=== PATIENT | male | born 1960 | race African-American/Black ===

== ENCOUNTER 2019-04-06 08:27 | Emergency (ER) | payer BC ==
[~2019-04-06] VITALS: Ht 172.7 cm; Wt 116.6 kg
[~2019-04-06 08:27] MED LIST: VAS1025 PO
[2019-04-06 08:34] VITALS: Ht 172.7 cm; Wt 116.6 kg
[2019-04-06 10:06] LABS: BASOPHIL % 0.3 % (0-2); PLATELET COUNT 271 x10^3mcL (130-400); RED CELL DISTRIBUTION WIDTH 13.8 % (11.5-14.5)
[2019-04-06 10:14] LABS: CALCIUM 8.4 mg/dL (8.5-10.1); CARBON DIOXIDE 24.3 mmol/L (21-32); CHLORIDE SERUM 98 mmol/L (98-107); CREATININE SERUM 0.9 mg/dL (0.7-1.3); GFR1 > 60 mL/min; GLUCOSE SERUM 241 mg/dL (74-106); POTASSIUM SERUM 3.5 mmol/L (3.5-5.1); SODIUM SERUM 136 mmol/L (136-145)
[2019-04-06 10:18] LABS: ALKALINE PHOSPHATASE 112 U/L (46-116); ALT/SGPT 146 U/L (16-63); AST/SGOT 38 U/L (15-37); BILIRUBIN TOTAL 0.88 mg/dL (0.20-1.00); TOTAL PROTEIN, SERUM 7.9 g/dL (6.4-8.2)
[2019-04-06 10:49] LABS: UA SPECIFIC GRAVITY 1.015 (1.005-1.035); microscopic required? YES; urine erythrocyte NEGATIVE (NEGATIVE)
[2019-04-06 12:00] VITALS: BP 145/78
== END 2019-04-06 12:01 | disposition home or self-care (01) ==
LOC: ED 08:27
PROVIDERS: Emergency Medicine
DX: F41.9 Anxiety disorder, unspecified (principal); I10 Essential (primary) hypertension; R11.0 Nausea; Z98.890 Other specified postprocedural states
CPT/HCPCS: 82962; J2060; J2405; Q0092

== ENCOUNTER 2020-08-08 16:56 | Inpatient (IN) | payer BC, SELFPAY ==
[~2020-08-08] VITALS: Ht 172.7 cm; Wt 133.0 kg
--- NOTE | 2020-08-08 16:58 | NUR ---
BIB MEDICS, NO AVAILABLE BEDS, LEFT IN AMBULANCE BAY IN [facility] ON BED DELAY
--- NOTE | 2020-08-08 16:58 | NUR ---
BIB MEDICS, NO BED, LEFT IN [facility] IN [facility]
--- NOTE | 2020-08-08 17:26 | NUR ---
PT APPARENTLY LEFT IN TENT, TRIAGED BY CINDI HERNANDEZ
[2020-08-08 19:46] LABS: BASOPHIL % 0.3 % (0.2-1.5); PLATELET COUNT 235 x10^3mcL (152-348); RED CELL DISTRIBUTION WIDTH 13.8 % (12.1-16.2)
[2020-08-08 19:47] LABS: CALCIUM 8.7 mg/dL (8.5-10.1); CARBON DIOXIDE 24.9 mmol/L (21-32); CHLORIDE SERUM 96 mmol/L (98-107); CREATININE SERUM 1.7 mg/dL (0.7-1.3); GFR1 44 mL/min; GLUCOSE SERUM 185 mg/dL (74-106); POTASSIUM SERUM 3.7 mmol/L (3.5-5.1); SODIUM SERUM 134 mmol/L (136-145)
[2020-08-08 19:52] LABS: ALBUMIN 3.6 g/dL (3.4-5.0); ALKALINE PHOSPHATASE 102 U/L (46-116); ALT/SGPT 131 U/L (16-63); AST/SGOT 85 U/L (15-37); BILIRUBIN TOTAL 0.9 mg/dL (0.20-1.00); C REACTIVE PROTEIN 11.9 mg/dL (<=0.9); LACTIC DEHYDROGENASE (LDH) 489 U/L (100-190); TOTAL PROTEIN, SERUM 8.2 g/dL (6.4-8.2)
[2020-08-08] MEDS ORDERED: ESCITALOPRAM OX20 MG PO (23:52)
[2020-08-08] MEDS ORDERED: ATORVASTATIN CA20 M1 PO (23:52)
[2020-08-08] MEDS ORDERED: LISINOPRIL10 MG PO (23:53)
[2020-08-08] MEDS ORDERED: HYDRALAZINE HCL50 MG PO (23:53)
[2020-08-08] MEDS ORDERED: HYDROCHLOROTHIA25 MG PO (23:54)
[2020-08-08] MEDS ORDERED: METFORMIN500 M1 PO (23:54)
[2020-08-08] MEDS ORDERED: METOPROLOL TART50 MG PO (23:54)
--- NOTE | 2020-08-09 00:18 | NUR ---
PT CAME FROM TENT.
[2020-08-09 01:36] LABS: CHOLESTEROL/HDL RATIO 3.1
--- NOTE | 2020-08-09 05:34 | NUR ---
PLACED IN 15 LITERS NRB
[2020-08-09 06:53] LABS: BASOPHIL % 0.2 % (0.2-1.5); PLATELET COUNT 212 x10^3mcL (152-348)
[2020-08-09 07:03] LABS: CALCIUM 8.4 mg/dL (8.5-10.1); CARBON DIOXIDE 24.3 mmol/L (21-32); CREATININE SERUM 1.9 mg/dL (0.7-1.3); MAGNESIUM 2.6 mg/dL (1.8-2.4); PHOSPHOROUS 4.6 mg/dL (2.5-4.9); POTASSIUM SERUM 4.1 mmol/L (3.5-5.1)
--- NOTE | 2020-08-09 07:18 | NUR ---
REPORT GIVEN TO DELICIA HERNANDEZ
--- NOTE | 2020-08-09 07:38 | NUR ---
PT AAOX4 AND LAYING ON GURNEY S/F. PT ON 15L O2 VIA NRB. SPEAKING IN FULL CLEAR SENTENCES. APPEARS IN NO ACUTE DISTRESS. DENIES SOB/PAIN/DISCOMFORT. DEMONSTRATED UNDERSTANDING OF CALL LIGHT. SERVED BREAKFAST TRAY.
--- NOTE | 2020-08-09 11:00 | NUR ---
PT TOLERATING O2 VIA NRB. STATES "I FEEL FINE I DON'T FEEL SHORT OR BREATH." RESPIRATIONS E/U.
--- NOTE | 2020-08-09 12:59 | NUR ---
PT EATING LUNCH TRAY. STATES HE TRIED TO URINATE IN THE URINAL BUT STATES "THERE WAS NOTHING." PT IS UNSURE IF HE HAS HX OF BPH/PROSTATE. STATES HE WILL TRY AGAIN LATER. URINAL AT BEDSIDE
--- NOTE | 2020-08-09 13:00 | NUR ---
PT EDUCATED ON PLASMA TX. SIGNED CONSENT ON CHART. ALSO STATES HE IS WILL TO BE INTUBATED IF NEED BE.
--- NOTE | 2020-08-09 14:24 | NUR ---
ASSISTED PT TO URINAL. APPROX 450ML VICKY HAZY URINE
[2020-08-09 14:57] LABS: UA SPECIFIC GRAVITY >=1.030 (1.005-1.035); microscopic required? YES; urine erythrocyte NEGATIVE (NEGATIVE)
--- NOTE | 2020-08-09 15:49 | NUR ---
ATTEMPTING TO CALL FOR REPORT FOR PT TRANSFER TO TELE
--- NOTE | 2020-08-09 16:08 | NUR ---
ATTEMPTING TO CALL TELE UNIT FOR ADMIT BUT MULTIPLE TIMES NO ANSWER WHEN DIRECTED TO YAIMA HERNANDEZ
--- NOTE | 2020-08-09 16:31 | NUR ---
REPORT GIVEN TO YAIMA HERNANDEZ
[2020-08-09 17:45] VITALS: BP 122/78
--- NOTE | 2020-08-09 18:00 | NUR ---
LOADING DOSE OF REMDESIVIR INITIATED. OXYMIZER ADDED TO NONREBREATHER DUE PT O2 DOWN TO 88%. PT DENIES PAIN. INFORMED DR. RODRIGUEZ THAT US VENOUS NEEDS TO BE CLARIFIED, THE IDICATION IS NOT ON THE ORDER. DR. RODRIGUEZ STATED SHE WILL CLARIFY THE ORDER. ALL CARE ENDORSED TO ACADEMY DIRECTOR RN.
--- NOTE | 2020-08-09 20:00 | NUR ---
PT RECIEVED AAO REG RESP NO SOB BUT DIMINISHED TO JYOTI LOWER BASES,PT ON 15L NRM AND 8L N/C SAT 88%,ABDO IS SOFT WITH ACTIVE BOWEL SOUNDS,BED IN THE LOW POSITION AND LOCKED,KEPT CLEAN AND DRY TO TOUCH AND WILL CONTINUE TO MONITOR.
[2020-08-09 20:10] VITALS: BP 142/89
--- NOTE | 2020-08-09 20:19 | NUR ---
PNEUMOVAX 25 MCG GIVEN IM TO THE LT UPPER ARM ORDER,WILL CONTINUE TO MONITOR.
--- NOTE | 2020-08-09 20:41 | NUR ---
PT RECIEVED AAO REG RESP DIMINISHED TO JYOTI LOWER BASES HOB,PT ON 15L MRM AND OXYMIZER 8L SAT 91%,ABDO IS SOFT WITH ACTIVE BOWEL SOUNDS,IV INFUSING TO THE LT WRIST WITH THE SITE PATENTAND INTACT,KEPT CLEAN AND DRY TO TOUCH,KEPT CLEAN AND DRY TO TOUCH,CALL LIGHT EASY REACHED AND WILL CONTINUE TO MONITOR.
--- NOTE | 2020-08-09 21:41 | NUR ---
STARTED THE CONVALESCENT PALSMA ORDER AND PATIENT TOLERATING IT WELL,KEPT CLEAN AND DRY TO TOUCH AND WILL CONTINUE TO MONITOR.
[2020-08-10 04:32] VITALS: BP 138/88
--- NOTE | 2020-08-10 05:58 | NUR ---
PT HAD A RESTING NIGHT NO CHNAGE AT THIS TIME,WILL CONTINUE TO MONITOR.
--- NOTE | 2020-08-10 07:30 | NUR ---
RECEIVED PT FROM FIRE PROTECTION INSPECTOR NURSE. TELE #47, SB HR 59. AAOX4, LAYING ON L SIDE. BREATHING EVEN/SHALLOW ON 15 L NRB AND 12 L OXYMIZER. O2 SAT 87%. INCREASED OXYMIZER TO 13L. O2 SAT 93%. PT REPORTS BEING ABLE TO TAKE A DEEPER BREATH THAN YESTERDAY. DENIES PAIN/SOB AT THIS TIME. PT STILL IN NEED OF CONTINUOUS PULSE OX, NONE AVAILABLE IN HOSPITAL AT THIS TIME. IV TO LH PATENT, INFUSING NSAT 70ML/HR. NO FURTHER CONCERNS VOICED AT THIS TIME. BED IN LOWEST POSITION , CALL LIGHT IN REACH.
[2020-08-10 08:49] VITALS: BP 139/71
[2020-08-10 10:18] LABS: CALCIUM 8.4 mg/dL (8.5-10.1); CARBON DIOXIDE 25.2 mmol/L (21-32); CREATININE SERUM 1.4 mg/dL (0.7-1.3); POTASSIUM SERUM 3.5 mmol/L (3.5-5.1)
[2020-08-10 11:05] LABS: ALBUMIN 2.8 g/dL (3.4-5.0); BILIRUBIN DIRECT 0.2 mg/dL (0.0-0.2); BILIRUBIN TOTAL 0.53 mg/dL (0.20-1.00); TOTAL PROTEIN, SERUM 7.1 g/dL (6.4-8.2)
[2020-08-10 12:04] VITALS: BP 105/77
--- NOTE | 2020-08-10 13:30 | NUR ---
CHECKED BS, WAS 270, GAVE 9 U PER SLIDING SCALE. PT TOLERATED WELL. PT ENCOURAGED TO LIE IN PRONE POSITION, PT STATES HE WILL. PT'S O2 SAT 93% WHILE SUPINE, 96% WHILE IN PRONE. PT BREATHING EVEN/SHALLOW ON 15 L NRB+13L OXYMIZER. IN NO ACUTE RESP DISTRESS AT THIS TIME. PT REPORTS NO PAIN/SOB AT THIS TIME. SPOKE WITH SISTER ON PT'S PHONE, UPDATED ON PLAN OF CARE AND PT'S CONDITION. ALL QUESTIONS/CONCERNS ADDRESSED. BED IN LOWEST POSITION, CALL LIGHT IN REACH.
[2020-08-10 15:25] LABS: BASOPHIL % 0.2 % (0.2-1.5); PLATELET COUNT 316 x10^3mcL (152-348); RED CELL DISTRIBUTION WIDTH 13.6 % (12.1-16.2)
[2020-08-10 16:27] VITALS: BP 131/73
--- NOTE | 2020-08-10 17:30 | NUR ---
CHECKED BS, WAS 270. GAVE 9 UNITS INSUILN PER SLIDING SCALE. PT TOELRATED WELL. PT STATED THAT WHEN HE SWITCHED OVER TO SUPINE POSITION, IV TO L HAND GOT PULLED OUT. INSERTED NEW IV TO R HAND 22 G, IV PATENT, CDI, INFUSING NS AT 50 ML/HR. PT AAOX4, BREATHING EVEN/UNLABORED ON 15 L NRB+13LOXYMIZER. O2 SAT 92%. PT DENIES PAIN/SOB. NO FURTHER CONCERNS VOICED. BED IN LOWEST POSITION, CALL LIGHT IN REACH.
--- NOTE | 2020-08-10 19:20 | NUR ---
RECEIVED SHIFT REPORT FROM DAY RN ALVA. PT AWAKE, ALERT/ORIENTED X4. IN NAD. ON 15L NRB/13L OXYMIZER. VSS AT THIS TIME. +PULSES, +BS [id number]. DENIES PAIN, 0/10. RT PIV STIE BENIGN, INFUSING FLUIDS PER ORDERS. PT UPDATED ON POC, DENIES ANY NEEDS/CONCERNS AT THIS TIME. SAFETY CHECKS COMPLETED, CALL MAYER WITHIN REACH. HS CARE ONGOING.
[2020-08-10 22:06] VITALS: BP 128/76
[2020-08-11 06:37] VITALS: BP 118/78
--- NOTE | 2020-08-11 08:00 | NUR ---
RECIEVED PATIENT ALERT AND ORIENTED TIMES FOUR. IV INTACT AND PATIENT HAS BEEN TOLERATING DIET AND FLUIDS WELL. HE HAS USED SHAMIR URINAL AND URINE IS MEDIUM VICKY IN COLOR AND HE DENIES NO PAIN WITH URINATION. VITALS AT THIS TIME AT 97.5, 8, 20, 110/78, 90% ON NON REBREATHER AND THE OXYMIZER ORDERED. PATIENT CONTINUED WITH REMDESIVIR AND HAS RECEIVE DECADRON ORDERED. NOTED ON THE CHEST XRAY EARLY PNEUMONIA AND OR ATELECTASIS. NOTED LABS ARE THE BUN AND CREATININE OF THE PREVIOUS WAS AT 50.0 AND 1.4. PATIENT HAS HAD BLOOD SUGAR THIS AM AND AT 193 AND RECEIVED 3 UNITS OF REGULAR AT THAT TIME. HE DENIES PAIN AND SLEEPING QUIETLY ON AND OFF.
[2020-08-11 09:26] VITALS: BP 152/93
--- NOTE | 2020-08-11 12:04 | NUR ---
PATIENT HAD A RUN OF V TACH AND DENIES ANY CHEST PAIN PALPATATIONS. PATIENT WAS GIVEN SIX UNIT SO REGULAR FOR BLOOD SUGAR OF 244 ON AND OFF SOB NOTED BUT PATIENT DENIES ANY DISTRESS. SEEN BY THE DOCTOR AND ORDERS PENDING AT THIS TIME.
[2020-08-11 12:20] LABS: BASOPHIL % 0.1 % (0.2-1.5); PLATELET COUNT 350 x10^3mcL (152-348); RED CELL DISTRIBUTION WIDTH 13.8 % (12.1-16.2)
[2020-08-11 12:24] VITALS: BP 140/87
[2020-08-11 13:00] LABS: CALCIUM 8.5 mg/dL (8.5-10.1); CARBON DIOXIDE 24.9 mmol/L (21-32); CHLORIDE SERUM 105 mmol/L (98-107); CREATININE SERUM 1.1 mg/dL (0.7-1.3); GFR1 > 60 mL/min; GLUCOSE SERUM 232 mg/dL (74-106); SODIUM SERUM 140 mmol/L (136-145)
[2020-08-11 13:11] LABS: BILIRUBIN DIRECT 0.2 mg/dL (0.0-0.2); BILIRUBIN TOTAL 0.54 mg/dL (0.20-1.00); TOTAL PROTEIN, SERUM 6.6 g/dL (6.4-8.2)
[2020-08-11 13:36] LABS: ALBUMIN 2.7 g/dL (3.4-5.0)
[2020-08-11 17:26] VITALS: BP 140/86
--- NOTE | 2020-08-11 17:44 | NUR ---
GAVE INSULIN COVERAGE OF SIX UNITS AND PATIENT HAS HIS REMDESIVIR RUNNING AT [facility].
--- NOTE | 2020-08-11 19:50 | NUR ---
PATIENT RECEIVED, PATIENT DENIES PAIN AND DISCOMFORT AT THIS TIME. O2 91% ON 15L NRB AND 12L OXYMIZER. NSR HR 61. DENIES CHEST PAIN. BED IN LOWEST POSITION AND CALL LIGHT WITHIN REACH.
[2020-08-11 21:37] VITALS: BP 147/84
[2020-08-12 05:11] VITALS: BP 160/94
--- NOTE | 2020-08-12 07:04 | NUR ---
PATIENT IS RESTING IN BED. DENIES PAIN AT THIS TIME. O2 93% ON 15L NRB. NO SIGN OF DISTRESS. DENIES CHEST PAIN, DENIES SOB AT THIS TIME. BED IN LOWEST POSITION AND CALL LIGHT WITHIN REACH. WILL ENDORSE TO AM NURSE.
[2020-08-12 07:30] LABS: BASOPHIL % 0.3 % (0.2-1.5); PLATELET COUNT 352 x10^3mcL (152-348); RED CELL DISTRIBUTION WIDTH 13.3 % (12.1-16.2)
[2020-08-12 07:49] LABS: CALCIUM 8.2 mg/dL (8.5-10.1); CARBON DIOXIDE 30.4 mmol/L (21-32); CHLORIDE SERUM 105 mmol/L (98-107); CREATININE SERUM 1.1 mg/dL (0.7-1.3); GFR1 > 60 mL/min; GLUCOSE SERUM 158 mg/dL (74-106); SODIUM SERUM 139 mmol/L (136-145)
[2020-08-12 08:42] VITALS: BP 152/92
[2020-08-12 09:09] LABS: BILIRUBIN DIRECT 0.17 mg/dL (0.0-0.2); BILIRUBIN TOTAL 0.49 mg/dL (0.20-1.00)
[2020-08-12 09:11] LABS: ALBUMIN 2.7 g/dL (3.4-5.0); TOTAL PROTEIN, SERUM 5.9 g/dL (6.4-8.2)
--- NOTE | 2020-08-12 11:38 | NUR ---
SEEN BY THE DR AND ADVISED TO PRONE OR LA Y ON THE SIDE MUCH POSSIBLE. CONTINUED ON PRESENT 02 LEVEL. TOLERATED DIET AND STATES HE FEELS BETTER.
--- NOTE | 2020-08-12 11:50 | NUR ---
RECEIVED PATIENT AWAKE AND ABLE TO MAKE NEED KNOWN. CONTINUE ON THE NON REBREATHER AND THE OXYMIZER ORDERED AND DENIES SOB BUT APPEARS LABORED SOMEWHAT. HE ALSO STATES HE FEELS BETTER TODAY. LUNGS ARE DIMINISHED WITH SOME FINE SCATTERED RALES HEARD TO BOTH LUNGS. IV INTACT AND CONTINUED FLUIDS ORDERED. SANTINO LESTERS BEEN URINATING ALOT AND THE URINE IS MEDIUM VICKY IN COLOR AND ABOUT 700CC SO FAR. TOLERATED BREAKFAST AND FLUIDS WELL. PATIENT HAS TAKEN HIS MEDICATIONS AND LAST BLOOD SUGAR RECEIVED 156 WITH 3 UNITS OF REGULAR. PATIENT HAD NO ADVERSE REACTION FORMT HE REMDESIVIR AND HAS HAD THREE DOSES SO FAR. PATIENT AHS NOTED LABS OF PLATLET AT 352, AND THE CA AT 8.2, AND BUN AT 27.0. ENCOURAGE TO LIE ON HIS SIDE OR ABDOMEN PER NELY PILLAIAL.
[2020-08-12 13:17] VITALS: BP 153/86
--- NOTE | 2020-08-12 18:23 | NUR ---
GAVE REMDESIVIR ORDERED AND DENIES ANY ADVERSE REACTION. BLOOD SUGAR AT 256 AND GAVE INSULIN COVERAGE INDICATED. CONTINUED ON THE [facility] REBREATHER AND OXYMIZER ORDERED.
[2020-08-12 18:37] VITALS: BP 144/90
[2020-08-12 22:07] VITALS: BP 132/80
--- NOTE | 2020-08-12 22:38 | NUR ---
IV BECAME DISLODGED AND IV BEEPING. IV CATHETER IS OUT OF VEIN AND CANNULA IS SITTING ON SURFACT OF RIGHT HAND. RESTARTED ON FIRST ATTMEPT INTO LEFT FOREARM ON FIRST ATTEMPT USING ASEPTIC TECNIQUE. IV CATHETER SIZE 22 G
[2020-08-13 05:06] VITALS: BP 153/95
[2020-08-13 07:57] LABS: PLATELET COUNT 367 x10^3mcL (152-348); RED CELL DISTRIBUTION WIDTH 13.2 % (12.1-16.2)
[2020-08-13 08:21] VITALS: BP 136/80
[2020-08-13 08:40] LABS: CALCIUM 8.1 mg/dL (8.5-10.1); CHLORIDE SERUM 104 mmol/L (98-107); CREATININE SERUM 0.9 mg/dL (0.7-1.3); GFR1 > 60 mL/min; GLUCOSE SERUM 127 mg/dL (74-106); POTASSIUM SERUM 3.5 mmol/L (3.5-5.1); SODIUM SERUM 140 mmol/L (136-145)
[2020-08-13 09:27] LABS: BILIRUBIN DIRECT 0.23 mg/dL (0.0-0.2); BILIRUBIN TOTAL 0.7 mg/dL (0.20-1.00); TOTAL PROTEIN, SERUM 6.2 g/dL (6.4-8.2)
[2020-08-13 09:46] LABS: ALBUMIN 2.6 g/dL (3.4-5.0)
[2020-08-13 11:58] VITALS: BP 152/88
[2020-08-13 13:31] LABS: ATYPICAL LYMPH 2 %; BAND NEUTROPHIL 3 % (0-10); MONOCYTE 8 % (0-7); PLATELET MORPHOLOGY PLATELETS NORMAL; SEGMENTED NEUTROPHILS 77 % (37-75); rbc morphology (normal/abnorm) NORMAL (NORMAL)
[2020-08-13 16:20] VITALS: BP 137/82
[2020-08-13 21:18] VITALS: BP 98/58
[2020-08-13 21:37] VITALS: BP 148/87
[2020-08-14 06:18] VITALS: BP 137/90
[2020-08-14 07:46] VITALS: BP 147/87
[2020-08-14 09:30] LABS: RED CELL DISTRIBUTION WIDTH 13.6 % (12.1-16.2)
[2020-08-14 09:39] LABS: CALCIUM 8.6 mg/dL (8.5-10.1); CARBON DIOXIDE 28.8 mmol/L (21-32); CHLORIDE SERUM 98 mmol/L (98-107); CREATININE SERUM 0.9 mg/dL (0.7-1.3); GFR1 > 60 mL/min; GLUCOSE SERUM 133 mg/dL (74-106); POTASSIUM SERUM 3.6 mmol/L (3.5-5.1); SODIUM SERUM 135 mmol/L (136-145)
[2020-08-14 09:48] LABS: PLATELET COUNT 415 x10^3mcL (152-348)
[2020-08-14 12:47] VITALS: BP 123/70
[2020-08-14 16:18] LABS: BAND NEUTROPHIL 3 % (0-10); BASOPHIL 0 % (0-2); MONOCYTE 7 % (0-7); SEGMENTED NEUTROPHILS 75 % (37-75)
[2020-08-14 16:21] LABS: burr cell (echinocyte) 1+; rbc morphology (normal/abnorm) ABNORMAL (NORMAL); tear drop cell (dacryocyte) 1+
[2020-08-14 16:22] LABS: PLATELET MORPHOLOGY PLATELETS NORMAL
[2020-08-14 17:54] VITALS: BP 137/94
--- NOTE | 2020-08-14 18:28 | NUR ---
PATIENT WAS ABLE TO LIE PRONE TODAY. HE SAID IT DID NOT HELP A LOT. HE SAID HE IS HAVING TROUBLE BREATHING THROUGH HIS NOSE AND THAT IT SEEMS STUFFED BUT DOESN'T CLEAR WELL WHEN HE BLOWS HIS NOSE. THIS NURSE SUGGESTED PUTTING THE OXYMIZER TO HIS MOUTH. HE DID SO AND STATED THAT WAS A LOT BETTER. ENCOURAGED PRONING AGAIN WHEN POSSIBLE. BED LOCKED IN LOWEST POSITION. CALL LIGHT IN REACH. DENIES NEEDING ANYTHING AT THIS TIME.
--- NOTE | 2020-08-14 20:10 | NUR ---
RECIEVED PT FROM DAY SHIFT NURSE. A&O X 4. RR EVEN AND UNLABORED. PT ON 15L NRB & 12L OXYMIZER. O2 SAT 94%. NO ADN. BED LOCKED AND LOWERED. CALL LIGHT WITHIN REACH. WILL CONTINUE WITH PLAN OF CARE.
[2020-08-14 22:02] VITALS: BP 130/83
[2020-08-15 06:56] VITALS: BP 126/71
[2020-08-15 07:01] VITALS: BP 148/87
--- NOTE | 2020-08-15 07:40 | NUR ---
PT RESTING IN BED. A&O X4. NO ADN. WILL ENDORSE TO DAY SHIFT NURSE.
[2020-08-15 08:58] VITALS: BP 127/84
[2020-08-15 09:38] LABS: RED CELL DISTRIBUTION WIDTH 13.5 % (12.1-16.2)
[2020-08-15 10:05] LABS: CHLORIDE SERUM 100 mmol/L (98-107); GLUCOSE SERUM 106 mg/dL (74-106); POTASSIUM SERUM 4.4 mmol/L (3.5-5.1); SODIUM SERUM 137 mmol/L (136-145)
[2020-08-15 10:09] LABS: PLATELET COUNT 437 x10^3mcL (152-348)
[2020-08-15 10:36] LABS: GFR1 > 60 mL/min
[2020-08-15 12:28] VITALS: BP 142/85
--- NOTE | 2020-08-15 15:47 | NUR ---
NO SIGN OF DISTRESS. PATIENT HAS BEEN PRONING WELL. DENIES NEEDING ANYTHING. BED LOCKED IN LOWEST POSITION. CALL LIGHT IN REACH. O2 SATS OVER 90%.
[2020-08-15 17:22] VITALS: BP 135/83
[2020-08-15 17:40] LABS: ATYPICAL LYMPH 1 %; BAND NEUTROPHIL 6 % (0-10); BASOPHIL 0 % (0-2); MONOCYTE 5 % (0-7); SEGMENTED NEUTROPHILS 72 % (37-75)
[2020-08-15 17:41] LABS: PLATELET MORPHOLOGY PLATELETS INCREASED; rbc morphology (normal/abnorm) NORMAL (NORMAL)
--- NOTE | 2020-08-15 19:56 | NUR ---
RECIEVED PT FROM DAY SHIFT NURSE. A&O X4. RREVEN AND UNLABORED. PT ON 15L NRB & 12L OXYMIZER. O2 SAT 95%. NO ADN. BED LOCKED AND LOWERED. CALL LIGHT WITHIN REACH. WILL CONTINUE WITH PLAN OF CARE.
[2020-08-15 20:50] VITALS: BP 125/81
[2020-08-16 05:39] VITALS: BP 138/86
--- NOTE | 2020-08-16 07:06 | NUR ---
PT RESTING IN BED. A&O X4. RR EVEN AND UN LABORED. PT ON 15L NRB & 12L OXYMIZER. NO ADN. BED LOCKED AND LOWERED. CALL LIGHT WITHIN REACH. WILL ENDORSE TO DAY SHIFT NURSE.
[2020-08-16 07:57] LABS: BASOPHIL % 0.2 % (0.2-1.5); PLATELET COUNT 396 x10^3mcL (152-348); RED CELL DISTRIBUTION WIDTH 13.7 % (12.1-16.2)
[2020-08-16 08:13] LABS: CALCIUM 8.8 mg/dL (8.5-10.1); CARBON DIOXIDE 28.2 mmol/L (21-32); CHLORIDE SERUM 105 mmol/L (98-107); CREATININE SERUM 0.9 mg/dL (0.7-1.3); GFR1 > 60 mL/min; GLUCOSE SERUM 126 mg/dL (74-106); POTASSIUM SERUM 4.1 mmol/L (3.5-5.1); SODIUM SERUM 140 mmol/L (136-145)
[2020-08-16 09:14] VITALS: BP 156/95
--- NOTE | 2020-08-16 12:06 | NUR ---
AAO TIMES 4. TELE # 47 SR. LUNGS DIMINISHED BILATERALLY. O2 SAT 93% ON 15L NRB MASK, AND 15L OXIMIZER. BS'S ACTIVE TIMES 4. HART WITH GENERALIZED WEAKNESS. IV SITE CDI. COOPERATIVE. PERIPHERAL PULSES PALPABLE. NO C/O PAIN.
--- NOTE | 2020-08-16 14:41 | NUR ---
Initial Nutrition Assessment 250A Manfred Fink C - 59/M Dx: COVID 19 PNA, Hypoxia PMHx: HTN, DM PSHx: none Labs: (08/16) WBC 12H, BUN 27H, POCBG 251H, BILI 0.23H, AST 54H, ALT 166H, ALB 2.6L Meds: Humulin, Decadron, Vit D, Decadron, Lopressor, Colace, Lipitor, Zinc, Mucinex Diet: CCHO PO intake since admission: 90% PO intake x last 6 meals Ht: 172.72cm/ 5'7" Wt: 118.5kg/ 260# BMI: 39.7 Bed scale: unknown IBW: 148#/ 67.3kg %IBW: 175% UBW: unknown Age: 59 Food Allergies: NKFA Skin condition: CDI Sancho: 21 Edema: no edema Last BM: 08/11 Per H&P: 59-year-old male with pmhx of htn and diabetes who comes to the ED for shortness of breath. Patient states that his symptoms started 2 days ago, and he was tested positive last weekend. He lives with his brother who was also tested positive. His sob is minimal at rest; however, it gets exacerbated with movement, especially when climbing stairs. He gets really winded and starts having bad coughs after undergoing physical activity (climbing stairs). He also reports 4-5 episodes of lose diarrhea for [address] Note (08/16): Patient is an obese male with covid positive and currently on 15 l o2 via NRB and nasal cannula. Attempted calling over phone, no answer pt is on non-breather mask. He is has a fair appetite on a CCHO diet eating 90% average x 6 meals. C/O general weakness and some loose stools. His diet is not meeting needs d/t large frame and higher calorie and protein needs. Will rec to add 1 can Glucerna QD to supplement needs and easy to drink. Problem with: N/V/D/C: loose stools, otherwise denies Problems with: Chewing: Swallowing: none/ NRB Current appetite: fair Recent wt change: unknown %wt change: unknown Vitamin/Supplement use: unknown Special diet at home: unknown Physical activity: unknown Nutrition education given (specify specific nutrition education and handout given): no Food-drug interactions? Education given? no Estimated Nutritional Needs Based on [place] (67.3kg) body weight Energy: 2019 - 2356 kcal/day (30-35 kcal/kg) infection/sepsis Protein: 80 - 100 g/day (g/kg) Fluid: 2019 - 2356 mL/day (1 mL/kcal) Nutrition Diagnosis: Increased nutrient needs related to viral infection aeb Intervention 1. Consider modification to CCHO 75gm to meet needs. 2. Recommend adding 1 can Glucerna QD with meals for additional (220kcals/ 10gm protein) Monitor/Evaluate Goal: PO intake at least 75% of estimated needs Monitor: PO intake, Labs, GI function, ONS tolerance F/U in 3-5 days as moderate risk 08/19-
--- NOTE | 2020-08-16 14:41 | NUR ---
1. Consider modification to [facility] 75gm to meet needs. 2. Recommend adding 1 can Glucerna QD with meals for additional (220kcals/ 10gm protein)
[2020-08-16 15:29] VITALS: BP 144/83
--- NOTE | 2020-08-16 19:13 | NUR ---
AAO TIMES 4. TELE # 47 SR. VS'S STABLE. COOPERATIVE. ISOLATION DROPLET FOR COVID 19. NO C/O PAIN. O2 15 LNRB AND 15 L OXIMIZER.
--- NOTE | 2020-08-16 20:00 | NUR ---
PT RESTING IN BED WITH EYES OPEN. A&O X4. PT ON TELE 47 PRESENTING WITH SR. STRONG PULSES, NO EDEMA NOTED. PT ON 15L NRB, 15L OXYMIZER, OXYGEN SATURATION 92%. ACTIVE BOWEL SOUNDS X4. PT VOIDS IN URINAL. PT HAS GENERALIZED WEAKNESS BUT IS AMBULATORY. SKIN INTACT. NO C/O OR SIGNS OF PAIN, DISTRESS, OR DISCOMFORT. IV ON LFA WITH FLUIDS RUNNING PER MD ORDER. BED ON LOWEST LEVEL, CALL LIGHT WITHIN REACH, BED RAILS UP X2. WILL CONTINUE TO MONITOR.
[2020-08-16 21:57] VITALS: BP 133/88
--- NOTE | 2020-08-17 02:53 | NUR ---
PT RESTING IN BED WITH EYES CLOSED. PT COMPLIANT WITH 15L NRB AND 15L OXYMIZER AND TURNING SELF. NO C/O OR SIGNS OF PAIN, DISTRESS, OR DISCOMFORT. BED ON LOWEST LEVEL, CALL LIGHT WITHIN REACH, BED RAILS UP X2. WILL CONTINUE TO MONITOR.
--- NOTE | 2020-08-17 06:40 | NUR ---
PT RESTING IN BED. PT COMPLIANT WITH 15L NRB AND 15L OXYMIZER, OXYGEN SATURATION 95%. NO C/O OR SIGNS OF PAIN, DISTRESS, OR DISCOMFORT. BED ON LOWEST LEVEL, CALL LIGHT WITHIN REACH, BED RAILS UP X2. WILL ENDORSE TO ONCOMING SHIFT.
[2020-08-17 07:02] VITALS: BP 151/88
[2020-08-17 08:38] LABS: PLATELET COUNT 369 x10^3mcL (152-348); RED CELL DISTRIBUTION WIDTH 13.7 % (12.1-16.2)
[2020-08-17 08:45] VITALS: BP 139/79
[2020-08-17 08:51] LABS: CALCIUM 8.8 mg/dL (8.5-10.1); CARBON DIOXIDE 29.4 mmol/L (21-32); CHLORIDE SERUM 102 mmol/L (98-107); CREATININE SERUM 0.9 mg/dL (0.7-1.3); GFR1 > 60 mL/min; GLUCOSE SERUM 129 mg/dL (74-106); POTASSIUM SERUM 3.8 mmol/L (3.5-5.1); SODIUM SERUM 138 mmol/L (136-145)
[2020-08-17 13:58] LABS: MONOCYTE 10 % (0-7); PLATELET MORPHOLOGY PLATELETS NORMAL; SEGMENTED NEUTROPHILS 79 % (37-75)
[2020-08-17 14:19] LABS: rbc morphology (normal/abnorm) NORMAL (NORMAL)
[2020-08-17 15:32] VITALS: BP 117/80
[2020-08-17 21:05] VITALS: BP 132/84
[2020-08-18 05:30] VITALS: BP 131/91
--- NOTE | 2020-08-18 06:44 | NUR ---
RECEIVED PT ON BED - AAOX4, DENIES PAIN/DISCOMFORT AT THIS TIME, NOT IN DISTRESS. ASSESSMENT DONE. ON O2 INHA VIA NRB AT 15 LPM AND OXYMIZER AT 12 LPM SAT 92%. PT AMBULATORY WITHOUT ASSIST, CONTINENT , NO DIFFICULTY VOIDING. SAFETY MEASURES EMPHASIZED, VERBALIZED UNDERSTANDING. NEEDS ATTENDED. ACCUCHECKS DONE, COVERAGE GIVEN PRN. AT 0600 RECEIVED A CALL FROM FAMILY, JASMIN, UPDATED ON PT CONDITION. NO CHANGED NOTED DURING SHIFT. GEN CONDITION GUARDED.
--- NOTE | 2020-08-18 08:05 | NUR ---
RECIEVED REPORT FROM PM NURSE. PT A/OX4, FOLLOWS 2-STEP COMMANDS. TELE 47, SR-SB. S1 S2 NOTED. PULSES EQUAL, PALPABLE, NO EDEMA NOTED. COLOR APPROPRIATE FOR THNICITY. CRACKLES TO JYOTI UPPER LOBES, DIM JYOTI LOWER LOBES. 15LNRB, 12L OXYMIZER. O2 SAT 95%. BOWEL SOUNDS ACTIVE X4, LAST BM 08/15/20. CONTINENT, VOIDS USING URINAL. WEAKNESS TO BLE, SKIN INTACT. NO C/O PAIN. LFA 20G IV RUNNING NS @50ML/HR. WILL CONTINUE TO MONITOR. BED IN LOWEST POSITION, RAILS UP, CALL LIGHT WITHIN REACH
[2020-08-18 08:08] LABS: PLATELET COUNT 340 x10^3mcL (152-348); RED CELL DISTRIBUTION WIDTH 13.7 % (12.1-16.2)
[2020-08-18 08:31] LABS: CALCIUM 8.9 mg/dL (8.5-10.1); CARBON DIOXIDE 29.8 mmol/L (21-32); CHLORIDE SERUM 99 mmol/L (98-107); CREATININE SERUM 0.9 mg/dL (0.7-1.3); GFR1 > 60 mL/min; GLUCOSE SERUM 97 mg/dL (74-106); POTASSIUM SERUM 4.3 mmol/L (3.5-5.1); SODIUM SERUM 136 mmol/L (136-145)
[2020-08-18 09:01] VITALS: BP 124/78
[2020-08-18 12:01] VITALS: BP 132/68
--- NOTE | 2020-08-18 13:35 | NUR ---
EDUCATED PT ABOUT PURPOSE OF PICC LINE PLACEMENT. PT VERBALIZED UNDERSTANDING, SIGNED CONSENT. EDUCATED PT ABOUT IMPORTANCE OF PRONING AND REPOSITIONING TOLERATED. PT RETURN DEMONSTRATED WILL CONTINUE TO MONITOR. BED IN LOWEST POSITION, RAILS UP, CALL LIGHT WITHIN REACH
[2020-08-18 13:48] LABS: BAND NEUTROPHIL 5 % (0-10); METAMYELOCTE 1 % (0-2); MONOCYTE 7 % (0-7); MYELOCYTE 1 % (0-2); SEGMENTED NEUTROPHILS 76 % (37-75)
[2020-08-18 13:49] LABS: PLATELET MORPHOLOGY PLATELETS NORMAL; rbc morphology (normal/abnorm) NORMAL (NORMAL)
[2020-08-18 16:14] VITALS: BP 120/76
--- NOTE | 2020-08-18 19:00 | NUR ---
PT LYING IN BED COMFORTABLY. BREATHING EU, NO ACUTE DISTRESS/DISCOMFORT NOTED. PT HAS NO FURTHER QUESTIONS/CONCERNS. ALL NEEDS HAVE BEEN MET. WILL ENDORSE TO PM NURSE. BED IN LOWEST POSITION, RAILS UP, CALL LIGHT WITHIN REACH
--- NOTE | 2020-08-18 19:05 | NUR ---
GOT REPORT FROM DAY RN, PT SITTING IN BED. COVID ISOLATION ON 15L NRB AND 15L OXYMIZER AT 93% TOLERATING WELL. PT STATES HE GET SOB WHEN ANXIOUS AND IS SCARED OF CURRENT DIAGNOSIS. PT REASSURED THAT HE IS IN GOOD CARE AND TO CONTINUE DEEP BREATHING AND PRONING. TELE 47 NSR DENIES CHEST PAIN. USES COMMODE AND URINAL. IV IN LFA SALINE LOCKED. PICC INSERTED IN NADEEN AND CXR ORDERED. ALL NEEDS MET AT THIS TIME, BED LOW AND LOCKED, CALL LIGHT IN REACH. WILL CONTINUE TO MONITOR.
[2020-08-18 20:01] VITALS: BP 127/85
--- NOTE | 2020-08-19 04:52 | NUR ---
PT SLEPT WELL, DENIES SOB. STILL ON 15L NRB AND 15L OXYMIZER. ENCOURAGED DEEP BREATHING AND SIDE OR PRONE POSITIOING. PT COMPLIANT. TELE NSR THROUGH THE NIGHT. NO COMPLAINTS OF PAIN. ALL NEEDS MET, SAFETY PROTOCOLS FOLLOWED. WILL ENDORSE AND CONTINUE TO MONITOR FOR DAY RN
[2020-08-19 05:06] VITALS: BP 135/84
--- NOTE | 2020-08-19 07:19 | NUR ---
RECIEVED REPORT FROM PM NURSE. A/OX4, FOLLOWS 2-STEP COMMANDS. TELE 47, NSR, RRR S1 S2 NOTED. PULSES EQUAL, PALPABLE, NO EDEMA NOTED. LUNG SOUNDS, CRACKLES TO JYOTI UPPER LOBES, DIM LOWER LOBES. 15L NRB, 15L OXYMIZER. BOWEL SOUNDS ACTIVEX4, LAST BM 08/18/20. SOFT, WELL-FORMED. PT CONTINENT, VOIDS W URINAL. WEAKNESS TO BLE, SKIN INTACT, NO C/O PAIN AT THIS TIME. LFA 20G IV RUNNING NS @50 ML/HR. PT STATES BEING SOB WHEN ANXIOUS, ANXIETY R/T DX. REASSURED PT. WILL MONITOR CLOSELY. BED IN LOWEST POSITION, RAILS UP, CALL LIGHT WITHIN REACH
[2020-08-19 08:57] VITALS: BP 124/91
[2020-08-19 10:37] LABS: BASOPHIL % 0.5 % (0.2-1.5); PLATELET COUNT 295 x10^3mcL (152-348); RED CELL DISTRIBUTION WIDTH 13.8 % (12.1-16.2)
[2020-08-19 11:00] LABS: CALCIUM 8.8 mg/dL (8.5-10.1); CARBON DIOXIDE 27.4 mmol/L (21-32); CHLORIDE SERUM 97 mmol/L (98-107); CREATININE SERUM 0.9 mg/dL (0.7-1.3); GFR1 > 60 mL/min; GLUCOSE SERUM 166 mg/dL (74-106); POTASSIUM SERUM 3.7 mmol/L (3.5-5.1); SODIUM SERUM 132 mmol/L (136-145)
--- NOTE | 2020-08-19 12:45 | NUR ---
PT LYING IN BED WITHOUT MASK. PLACED MASK ON PT. PT ATTEMPTED TO REMOVE, PT WAS EDUCATED ON FUNCTION AND IMPORTANCE OF SUPPLEMENTAL O2. PT STATES "I GIVE UP, I DON'T WANT TO LIVE ANYMORE". OFFERED REASSURANCE, ENCOURAGED PT TO LEAVE MASK ON. ATIVAN GIVEN. WILL CONTINUE TO MONITOR PT. BED IN LOWEST POSITION, RAILS UP, CALL LIGHT WITHIN REACH
--- NOTE | 2020-08-19 13:00 | NUR ---
PT ROOMATE STATES PT FELL ON FLOOR. PT VISIBALLY CONFUSEED, RAMBLING, NO LINEAR TRAIN OF THOUGHT . BP 123/75 MAP 91, HR 77, RESP 30, O2 SAT 78%. PLACED MASK ON PT, PT CONTINUES REMOVING, COMBATIVE. RT AT BEDSIDE, CHANGE SUPPLEMENTAL O2 TO 15L BUBBLE NC, 15L NRB. PT STABLE. RESTRAINT PLACED ON RUE. PT STABILIZED. WILL NOTIFY MERCHANDISE PRESENTATION ASSOCIATE MAHNAZ. WILL MONITOR CLOSELY. BED IN LOWEST POSITION, RAILS UP, CALL LIGHT WITHIN REACH
--- NOTE | 2020-08-19 14:26 | NUR ---
PT REFUSED MELATONIN
--- NOTE | 2020-08-19 15:03 | NUR ---
PT CONTINUES TO REMOVE MASK. PT AWARE OF RISKS R/T REMOVING SUPPLEMENTAL O2. WILL NOTIFTY CHARGE NURSE
--- NOTE | 2020-08-19 15:26 | NUR ---
PT CONTINUES TO REMOVE MASK. PATIENT SCHEDULING COORDINATOR MAHNAZ NOTIFIED. PATIENT SCHEDULING COORDINATOR STATED TO MONITOR PT CLOSELY. BED IN LOWEST POSITION, RAILS UP, CALL LIGHT WITHIN REACH
--- NOTE | 2020-08-19 16:31 | NUR ---
PT SELF D/C PARISH. PT DENIES PAIN
[2020-08-19 16:39] VITALS: BP 123/75
[2020-08-19 20:18] VITALS: BP 112/75
--- NOTE | 2020-08-20 02:26 | NUR ---
PATIENT IN BED,AWAKE,ALERT ,AND ORIENTED WITH PERIOD OF CONFUSION AND RESTLESSNESS.SKIN WARM AND DRY TO TOUCH..ON 15L/CT VIA NRB MASK AND 15 L/MIN OXYMIZER WITH O 2 SAT 90-95% LUNGS SOUND DIMINISHED UPON AUSCULTATION . HAD EPISODES OF AGITATION AND CONFUSION.PATEINT TRYNG TO GET OUT OF BED WITHOUT CALLINFG FOR ASSISTANCE NEEDE WITH UNSTEADY GAIT, EPISODES OF REMOVING MEDICL EQUIPMENT. INFORMED MD WITH NEW ORDER.NOTED AND CARRIED OUT.BILATERAL WRIST RESTRAINT APPLIED AND CHECKE FOR CIRCULATION .NO REDNESS,NO SWELLING.CALL LIGHT WITHIN REACH
[2020-08-20 06:01] VITALS: BP 132/85
--- NOTE | 2020-08-20 06:48 | NUR ---
PATEINT RESTING N BED COMFORTABLY AT THIS TIME.AWAKE,ALERT,AND ORIENTED WITH PERIOD OF CONFUSION.RREMAINED ON 15L NRB MASK AND 15 L/MIN OXYMIZER WITH O2 SAT. 92%.LUNGS SOUND DIMINISHED UPON AUSCULTATIOM. REMAINED ON BILATERAL WRIST RESTRAINT FOR SAFETY.CHECKED FOR CIRCULATION PALPABLE,NO REDNESS,NO SKIN BREAKDOWN .ENCOURAGED PATIENT TO CALL FOR ASSISTANCE AND ASSISTED IN TURNING AND PRONING.KEPT COMFORTABLE.
--- NOTE | 2020-08-20 09:17 | NUR ---
PT TOLERATING OXIMIZER 15 LPM AND NRB 15 LPM. PT STATES NO PAIN. PRESENCE OF PRODUCTIVE COUGH THAT THE PT IS ABLE TO CLEAR BY HIMSELF. PT COMPLIANT W/ CARE.
[2020-08-20 09:37] VITALS: BP 138/94
[2020-08-20 13:36] VITALS: BP 127/81
[2020-08-20 17:26] VITALS: BP 132/83
--- NOTE | 2020-08-20 17:56 | NUR ---
PT TOLERATING OXIMIZER 15 LPM W/ NRB 15 LPM. PT STATES NO PAIN AND HAS BEEN SELF-TURNING ALL DAY. NO NEED FOR RESTRAINTS THROUGHOUT DAY SHIFT AND WAS A/OX4. PT IS STABLE AND WILL ENDORSE CARE TO CANDLE MAKING SUPERVISOR RN.
--- NOTE | 2020-08-20 19:50 | NUR ---
RECEIVED REPORT FROM OUTGOING NURSE.PATIENT IN BED,AWAKE,ALERT,AND ORIENTED. SKIN WARM AND DRY TO TOUCH.ON O2 AT 15L NRB MASK AND 15 L OXYMIZER WITH O2 SAT. 90-94%.LUNGS SOUND DIMINISHED UPON AUSCULTATION.ON TELE #47 NSR .DENIES PAIN AND DISCOMFORT AT THIS TIME.F/C PATENT AND DRAINING VICKY COLORED URINE TO BSD,NO HEMATURIA,NO DYSURIA.ENCOURAGED PATIENT TO CALL FOR ASSISTANCE AND CALL LIGHT WITHIN REACH.
[2020-08-20 20:40] VITALS: BP 127/88
[2020-08-21 05:16] VITALS: BP 136/82
--- NOTE | 2020-08-21 07:50 | NUR ---
RECEIVED PT. IN BED A/A/O X3. NO SOB, NO N/V NOTED. PT. DENIES ANY PAIN AT THIS TIME. PT. IS ON O2 AT 15L VIA NRB MASK AND 15L VIA NC WITH HUMIDIFIER. PT. IS ON DROPLET ISOLATION FOR (+) COVID-19. IVF NS RUNNING AT 50 CC/HR VIA PICC LINE AT R UPPER ARM. F/C DRAINING VICKY URINE. BED IN LOW POS., CALL LIGHT WITHIN REACH. SIDE RAILS UP X3.
[2020-08-21 08:09] LABS: BASOPHIL % 0.1 % (0.2-1.5); PLATELET COUNT 209 x10^3mcL (152-348); RED CELL DISTRIBUTION WIDTH 13.8 % (12.1-16.2)
[2020-08-21 08:55] LABS: CALCIUM 8.7 mg/dL (8.5-10.1); CARBON DIOXIDE 25.3 mmol/L (21-32); CHLORIDE SERUM 103 mmol/L (98-107); CREATININE SERUM 0.9 mg/dL (0.7-1.3); GFR1 > 60 mL/min; GLUCOSE SERUM 134 mg/dL (74-106); MAGNESIUM 2.1 mg/dL (1.8-2.4); POTASSIUM SERUM 3.9 mmol/L (3.5-5.1); SODIUM SERUM 139 mmol/L (136-145)
[2020-08-21 09:01] VITALS: BP 124/84
[2020-08-21 12:30] VITALS: BP 138/88
[2020-08-21 16:44] VITALS: BP 121/68
[2020-08-21 18:21] VITALS: BP 121/68
--- NOTE | 2020-08-21 19:00 | NUR ---
REMAINS IN STABLE CONDITION AT THIS TIME. PT. IS MAINTAINED ON O2 AT 15L NRB MASK AND 15L VIA NC WITH HUMIDIFIER. O2 SAT. BETWEEN 90 TO 94%.
[2020-08-21 20:25] VITALS: BP 117/67
[2020-08-22 05:21] VITALS: BP 127/87
--- NOTE | 2020-08-22 06:32 | NUR ---
UNEVENTFUL NIGHT RESTING IN BED ASLEEP. REMAIN OM 15L NRB/ 15L BUBBLE NC. PT IS MORE ORIENT TODAY. NO S/S OF RESP DISTRESS NOTED. DENIES ANY PAIN OR DISCOMFORT AT THIS TIME, WILL CON'T TO MONITOR
--- NOTE | 2020-08-22 07:40 | NUR ---
RECEIVED PT. IN BED A/A/O X3. NO SOB, NO N/V NOTED. PT. DENIES ANY PAIN AT THIS TIME. PT. IS ON O2 AT 15L NRB MASK AND 15L NC WITH HUMIDIFIER. PT. IS ON DROPLET ISOLATION FOR (+) COVID-19. IVF NS RUNNING AT 50 CC/HR VIA PICC LINE (DOUBLE LUMENS) AT R UPPER ARM . PT. ALSO HAS A PERIPHERAL IV SITE AT R FA. F/C DRAINING VICKY URINE. BED IN LOW POS., CALL LIGHT WITHIN REACH. SIDE RAILS UP X3.
--- NOTE | 2020-08-22 08:00 | NUR ---
PT. WAS ENCOURAGED TO STAY IN PRONE POSITION WHEN IN BED.
[2020-08-22 08:47] VITALS: BP 125/85
--- NOTE | 2020-08-22 10:45 | NUR ---
PT. APPEARS RESTLESS AND ANXIOUS; ATIVAN 1MG IV GIVEN.
[2020-08-22 12:26] VITALS: BP 114/76
[2020-08-22 17:10] VITALS: BP 119/73
--- NOTE | 2020-08-22 18:42 | NUR ---
REMAINS IN STABLE CONDITION AT THIS TIME. WILL CONTINUE TO MONITOR.
[2020-08-22 20:40] VITALS: BP 114/73
--- NOTE | 2020-08-23 04:20 | NUR ---
PT IS ON 15 L/M BUBBLE NASAL CANNULA WITH A 15 L/M NON REBREATHER ON TOP. PT IS IN PRONE POSITION, SPO2 86. WHEN LAYING ON HIS SIDE, SPO2 84.
--- NOTE | 2020-08-23 05:00 | NUR ---
PLACED PT ON BIPAP 14/8 RATE 16 FIO2 100%.
[2020-08-23 05:05] VITALS: BP 145/92
--- NOTE | 2020-08-23 06:19 | NUR ---
COMPUTER PERIPHERAL EQUIPMENT OPERATOR WAS SUMMONED TO THE ROOM DUE TO PT C/O SOB, RT CALLED AND IS PRESENT IN ROOM PT SPO2 WAS 78 AT THE TIME PT THAN PRONE AND O2 IS NOW 88% HOWEVER PATIENT BREATHING IS LABORED USING ACCESSORY MUSCLE TO BREATHE. RT NOTIFIED MD FOR BIPAP ADJUSTMENT. PT WAS THAN TRANSFERRED TO ROOM 246B AWAKE AND ALERT TRYING TO CALL TO INFORM HER OF THE ROOM CHANGE. PT WAS THAN PUT ON BIPAP ORIENT PT TO ROOM AND BED CONTROLS ALSO PROVIDED WRITING MATERIAL TO HIM. PT IS RESTING COMFORTABLE IN BED WITH NO S/S OF RESP DISTRESS NOTED, WILL CON'T TO MONITOR
--- NOTE | 2020-08-23 08:00 | NUR ---
RECEIVED PT IN BED A/A/OX4 DENIES NERI. SLIGHTLY LABORED BREATHING WITH RR 30S. DIMINISHED BS BILAT. PLACED ON BIPAP THIS AM SETTING 14/8 RR16, FIO2 100%. ENCOURAGE PRONING TOLERATED OR TURNING ON SIDE MUCH POSSIBLE. DENIES ANY CP/PRESSURE AT THIS TIME. NSR WITH PVCS. ON TELE. NO EDEMA NOTED WITH PICC LINE TO RUE. ABD SOFT, NONTENDER WITH ACTIVE BS X4. DENIES ANY N/V AT THIS TIME. LUGO CATH TO GRAVITY WITH YELLOW URINE. DROPLET PRECAUTIONS MAINTAINED CALL LIGHT IN REACH NEEDS ATTENDED TO.
[2020-08-23 08:20] VITALS: BP 140/91
--- NOTE | 2020-08-23 12:24 | NUR ---
MEDICAL CASE MANAGER HAD CALLED STATED SHE HAD SPOKEN WITH WITH PT'S SISTER AND SHE HAD REQUESTED TO ASK PT IF HE WANTED HIS SISTER OR HER BROTHER NEEMA TO MAKE DICISION FOR HIM IF HE BECOMES IMPAIRED. SPOKE WITH PT AND HE STATED HE WANTED HIS SISTER JASMIN. LORENZO RAYMOND NOTIFIED.
--- NOTE | 2020-08-23 12:47 | NUR ---
ASSISTED PT WITH GLUCERNA SHAKE MEAL TOLERATED WELL, PT ASSISTED ON AND OFF BIPAP O2 SAT DROPPED TO 86% AT ITS LOWEST. CALL LIGHT IN REACH NEEDS ATTENDED TO.
[2020-08-23 13:00] VITALS: BP 120/77
--- NOTE | 2020-08-23 15:01 | NUR ---
Follow-up Nutrition Assessment: [facility] 59M MR Dx: COVID 19 PNA, Hypoxia PMHx: HTN, DM PSHx: none Labs: (08/21) WBC 18.7H, BUN 21H, BG 134H, (08/18) HDL 31L, *other lipid panel WNL (08/16) WBC 12H, BUN 27H, POCBG 251H, BILI 0.23H, AST 54H, ALT 166H, ALB 2.6L Meds: sodium, Humulin, Heparin sodium, Mucinex, Colace, Vitamin C, Zinc sulfate, Ativan, Decadron, Vitamin D, Lopressor, Lipitor Diet: CCHO full liquid with Ensure TID PO Intake: (08/16) B: 70%, L: 100%, D: 85%, (08/17) B: 100%, D: 100%, (08/20) L: 100%, (08/21) B: 100%, (08/22) B: 50%, L: 30%, Wt: 118.5kg/ 260# BMI: 39.7 Edema: none noted Last BM: 08/20 Skin: skin intact Sancho: [address] (08/16), Patient is an obese male with covid positive and currently on 15 l o2 via NRB and nasal cannula. Attempted calling over phone, no answer pt is on non-breather mask. He is having a fair appetite on a CCHO diet eating 90% average x 6 meals. C/O general weakness and some loose stools. His diet is not meeting needs d/t large frame and higher calorie and protein needs. Will rec to add 1 can Glucerna QD to supplement needs and easy to drink. RD Note (08/23/2020): Per progress note (08/23), pt's oxygen dropped to 88% and now on BIPAP. Pt was previously on NRB 15L. Diet order was changed to CCHO full liquid on 08/23. Spoke with pt's RN. RN reported that pt is now on BIPAP and was not able to tolerate solid food, and diet order was changed. Supplements for diet also ordered with meal to aid PO intake. Will continue to monitor pt's tolerance with CCHO full liquid diet. Estimated Nutritional Needs Based on [employer] (67.3kg) body weight Energy: 2019 - 6 kcal/day (30-35 kcal/kg) Protein: 80 - 100 g/day (1.2-1.5 g/kg) Fluid: 2019 - 2356 mL/day (1 mL/kcal) Nutrition Diagnosis: 1. Increased nutrient needs related to viral infection aeb BIPAP requirement, weakness, fair appetite/ obese not meeting needs. (Modified, ongoing) 2. Anticipate inadequate energy and protein intake r/t oxygen demand associated food intolerance a/e/b pt is now on BIPAP and not being able to tolerate solid diet (new). Intervention 1. Continue CCHO full liquid diet as tolerate 2. Continue glucerna TID for additional 660kcal and 60g protein. Monitor/Evaluate Goal: PO intake at least 75% of estimated needs (met, ongoing goal) Monitor: PO intake, Labs, GI function, ONS tolerance F/U in 2-3 days as moderate risk 08/25-
--- NOTE | 2020-08-23 15:01 | NUR ---
1. Continue CCHO full liquid diet as tolerate 2. Continue glucerna TID for additional 660kcal and 60g protein.
--- NOTE | 2020-08-23 15:12 | NUR ---
PT RESTED AT THIS TIME WAS ON LT SIDE AND ASSISTED BACK TO HIS BACK AT THIS TIME. WHILE ON HIS LEFT SIDE O2 SAT 96-97%. CURRENTLY 94-95 PRONE WITH HOB ELEVATED. CALL [facility] IN [place] NEEDS ATTENDED TO.
[2020-08-23 17:10] VITALS: BP 122/71
--- NOTE | 2020-08-23 18:39 | NUR ---
PT RESTING AT THIS TIME DENIES ANY DISCOMFORT. REAMINS ON BIPAP WITH NO CHANGES TO SETTINGS. IMPROVEMENT WITH SATURATIONS MAINTAINED ABOVE 90% GREATER WHILE ON SIDE UP TO 97%. ENCOURAGE SIDE TURNING MUCH TOLERATED. PT IN GOOD SPIRITS AT THIS TIME. CALL [facility] IN [place], DROPLET PRECAUTIONS MAINTAINED THROUGHT OUT THE SHIFT.
--- NOTE | 2020-08-23 21:05 | NUR ---
SPO2 MAINTAINED IN LOW 80'S ON BIPAP SETTINGS: 14/8 RATE 16 FIO2 100%. PT WAS A LITTLE ANXIOUS. INCREASED SETTINGS 16/10 RATE 16 FIO2 100% TO IMPROVE SPO2. SPOKE WITH THE PT AND ASKED THAT HE LAY ON HIS SIDE FOR MINIMUM OF 4 HOURS THEN SWITCH TO THE OTHER SIDE. PT SEEMED WILLING BUT EXPRESSED DISCOMFORT. WHEN ON HIS SIDE SPO2 INCREASED TO 89-90.
[2020-08-23 21:31] VITALS: BP 123/81
--- NOTE | 2020-08-23 22:31 | NUR ---
REC'D PT FROM DAY SHIFT NURSE. PT REMQINS ON BIPAP NOTED LABORED BREATHING PT C/O THAT HE CANT BREATHE AND HE REMOVED THE BIPAP EDUCATED THE PT THE IMPORTANCE OF AIRWAY AND HYPOXIA. PT NEEDS REINFORCEMENT. PT IS A LITTLE CONFUSE TODAY. LILLY REMINDERS OF KEEPING THE BIPAP ON. MEDICATED PT WITH ATIVAN 0.5MG IV PT IS STILL RESTLESS AND ANXIOUS. RT NOTIFIED AND IS PRESENT SHE INCREASE THE SETTINGS TO 60/10 ON BIPAP. WILL CON'T TO MONITOR.
[2020-08-24] VITALS (12 sets, daily range): BP systolic 70–171; BP diastolic 48–93; Ht 172.7 cm; Wt 133.0 kg
--- NOTE | 2020-08-24 04:01 | NUR ---
pt con't to be restless noted dry cough while on bipap repositioned to left side on 21/05 rate 16 fio2 100%. will con't to monitor
--- NOTE | 2020-08-24 07:40 | NUR ---
RECEIVED PT IN BED A/A/OX3 FORGETFUL AT TIMES WITH PERIODS OF CONFUSION PER REPORT. PT HAD INCREASE EPISODES OF ANXIETY AND RESTLESSNESS LAST NIGHT. CALM AT THIS TIME. RESP EVEN AND LABORED WITH DIMINISHED BS BILAT. ON BIPAP SETTING 19/03 RR16 FIO2 100%. HR 60S, DENIES ANY CP/PRESSURE AT THIS TIME. NO EDEMA NOTED WITH IVF TO NADEEN PICC AT 50ML/HR. ABD SOFT, ROUND, NONTENDER WITH ACTIVE BS X4. DENIES ANY N/V AT THIS TIME. LUGO CATH TO GRAVITY WITH YELLOW URINE. CALL [facility] [place] NEEDS ATTENDED TO.
[2020-08-24 07:53] LABS: BASOPHIL % 0.1 % (0.2-1.5); PLATELET COUNT 153 x10^3mcL (152-348); RED CELL DISTRIBUTION WIDTH 14.2 % (12.1-16.2)
[2020-08-24 08:32] LABS: CALCIUM 8.6 mg/dL (8.5-10.1); CARBON DIOXIDE 28.8 mmol/L (21-32); CHLORIDE SERUM 104 mmol/L (98-107); CREATININE SERUM 0.9 mg/dL (0.7-1.3); GFR1 > 60 mL/min; GLUCOSE SERUM 138 mg/dL (74-106); POTASSIUM SERUM 4.4 mmol/L (3.5-5.1); SODIUM SERUM 140 mmol/L (136-145)
--- NOTE | 2020-08-24 09:30 | NUR ---
ASSISTED PT WITH MEDS AND WITH MEAL. WHILE ON BIPAP. PT HAD ANXIETY ATTACK AFTERWARDS WHEN HE ATTEMPTED TO TURN TO LT SIDE REMAINED SUPINE WITH HOB ELEVATED. O2 SAT DROPPED TO 78, NOW UP TO 90% WITH RR36. INSTRUCTED TO TAKE SLOW DEEP BREATHS. TO HELP WITH ANXIETY AND SATURATION.
--- NOTE | 2020-08-24 11:10 | NUR ---
PT NOTED ANXIOUS AND RESTLESS, NOTED ATIVAN WAS DISCOMTINUED AT TIME OF ADMINISTRATION. TRAIN BRAKER BUSH CALLED AND RECEIVED ORDER TO RESUME ATIVAN 1MG IVP Q4H PRN ANXIETY AND AGITATION. ONCE VERIFIED ATIVAN 1MG IVP GIVEN PER EMAR.
--- NOTE | 2020-08-24 11:54 | NUR ---
NOTED PT'S SATS IN MID 70S, ENTERED ROOM AND FOUND PT WITH BIPAP MASK COMPLETELY OFF. PT WAS AWAKE BUR CDISORIENTED. PLACED MASK BACK ON SATS SLOWLY CLIMB BACK TO 90%. SPOKE WITH SISTER JASMIN. MADE AWARE PT HAS HAD A ROUGH NIGHT AND DAY WITH INCREASE IN EPISODES OF DISORIENTATION AND TACHYPNIA. PT HAS VERBALIZED HE WANTS A DIFFERENT O2 DELIVERY SYSTEM DOES NOT WANT MASK ANYMORE, MADE AWARE THAT D/T OXYGEN ELEVELS HE MAY NOT TOLERATE IT. INSTRUCTED TO WORK ON BREATHING AND TO TAKE SLOWER DEEPER BREATHS TO PREVENT ANXIETY. CALL [facility] [place] NEEDS ATTENDED TO.
--- NOTE | 2020-08-24 13:50 | NUR ---
NOTED PT HAD REMOVED PULSE OX AND WAS GOING IN AND OUT. THEN NOTED TEL LEADS WHERE OFF CHECK ON PT FROM THE DOOR NOTED IV IN THE MIDDLE OF THE ROOM AND PT WAS NOT IN BED. CALLED AND TOLD US TO CALL RT STAT SINCE PT WAS IN BR OFF BIPAP. ENTERED ROOM PT FOUND STADING DISORIENTED OVER THE SINK GRABBED PT FROM BEHIND AND GUIDED PT TO BED. PT HAD SOILED HIMSELF. GOT PT TO MIDDLE OF THE BED WITH ASSISTANCE AND PLACED BIPAP MASK ON THE PT. HE WAS CONFUSED AND DISORIENTED BUT AWAKE AT THIS TIME. PT SUDENDLY BECAME COMBATIVE AND STARTE SWINGING AND KICKING AND FIGHTING BIPAP. ADDITIONAL STAFF CALLED IN AND PRN ATIVAN WAS GIVEN. PT'S SATS REMAINED LOW AND PT REMAINED RESTLESS. 1404: [facility]AP[facility] RESPONSE WAS CALLED. AND ER DOC CALLED TO EVAL FOR POSSIBLE NEED FOR INTUBATION. AT THIS TIME. CAPTAIN ASSISTANT BUSH AT BEDSIDE WITH VERBAL ORDER FOR INTUBATION.
--- NOTE | 2020-08-24 14:25 | NUR ---
[facility] RESPONSE CALLED AT 1404. 1406: B/P 130/75 HR 81 O2 SAT 70-80%. 1408:DR. BAUMAN ARRIVED RT X3 ARRIVED AND PREPARED PT FOR INTUBATION. 1414: ETT IN PLACE 8.0 AT 24CM LIP LINE. RT RECEIVED ORDER OR VENTS SETTIGN FROM DR. BAUMAN. 1415: RAPID RESPONSE CONCLUDED, RT REMAIND AT BEDSIDE WITH ATTENDING NURSE AND CH TO STABALIZE PT. 1418: O2 SAT 70% ON VENT, HR 170S, B/P 188/105. CXR ORDERED.
--- NOTE | 2020-08-24 14:35 | NUR ---
VERSED DRIP INITIATED PER PROTOCOL.
--- NOTE | 2020-08-24 14:45 | NUR ---
FENTANYL DRIP STARTED PER PROTOCOL. CALCULATION ASSISTANCE WITH CN.
--- NOTE | 2020-08-24 16:00 | NUR ---
EXTRA IV INSERTED TO RFA 20G AT THIS TIME.
--- NOTE | 2020-08-24 16:45 | NUR ---
PHYNYLEPHRINE DRIP STARTED AT 50MCG/MIN PER PROTOCOL FOR B/P 70/48 MAP 55. PT CXR REVIEWED BY RT AND STATED HE HAD ORDER TO ADVANCE ETT TUBE 2CM. PT REMAINS WITH O2 SAT 78-80% RT AWARE HR DOWN TO 110.
--- NOTE | 2020-08-24 17:50 | NUR ---
PT'S SISTER CALLED AND LEFT MESSAGE FOR ATTENDING OR NURSE TO CALL [facility] A PHYSICIAN FAMILY MEMBER FOR AN UPDATE. STATED INFORMATION COULD BE GIVEN TO THEM. MD [facility] CALLED AT AND UPDATE. MADE AWARE PT HAD BEEN INTUBATED EARLIER THIS AFTERNOON AND SYSTEMS TRAINER HAD CALL PT'S SISTER JASMIN TO DISCUSS EVENTS AND SHE HAD NOT BEEN ABLE TO GET A HOLD OF HER AND WAS GOING TO ATTEMP AT THIS TIME.
--- NOTE | 2020-08-24 18:45 | NUR ---
PT RESTING COMFORTABLY AT THIS TIME. ON FENTANYL AT 11.8ML/HR. VERSED 10MG/HR, PHENYLEPHRINE AT 125MCG/MIN WITH VSS B/P 100/62 (74), HR 78, O2 SAT 88%. NELA CARE PERFORMED PT DID NOT TOLERATE WELL. DESATED TO 78% AND VERSED WAS TITRATED UP FROM 9MG/HR TO 10MG/HR. AFTER A FEW MIN PT BECAME CALM AND WAS NO LONGER RESTLESS. RESTRAINTS REMAIN IN PLACE. CALL [facility] IN [place] NEEDS ATTENDED TO AND ANTICIPATED.
--- NOTE | 2020-08-24 18:46 | NUR ---
ADVANCED TUBE TO [address] BAUMAN POST XRAY
--- NOTE | 2020-08-24 19:00 | NUR ---
OG TUBE INSERTED BY NURSE TIFFANY. NOTED ET TUBE 26 CM AT LIP LINE. PER REPORT, RT HAD ADJUSTED ET TUBE BY 2 CM. CXR ORDERED TO CONFIRM PLACEMENT OF OG TUBE AND ETT.
--- NOTE | 2020-08-24 19:49 | NUR ---
PT INTUBATED, ON VENT SETTINGS OF AC MODE, RATE 20, PEEP 10, FIO 100%. TV 669, RATE 26, O2 SAT 87-88%. HOB ELEVATED 30 DEG. SINUS RHYTHM WITH ARRHYTHMIAS NOTED. HR 72/MIN. ON SOFT BILATERAL WRIST RESTRAINTS. ON FENTANYL DRIP ADJUSTED TO 1 MCG/KG/HR (11.85ML/HR), VERSED DRIP AT 10 MG/HR (20ML/HR), NEOSYNEPHRINE DRIP AT 125 MCG/MIN (37.5ML/HR). LUGO CATH DRAINING YELLOW URINE. CALL LIGHT WITHIN EASY RE[place].
--- NOTE | 2020-08-24 20:46 | NUR ---
BOTH PORTS TO PICC LINE IN RIGHT UPPER ARM FLUSHED WELL WITH 5ML NS EACH. SALINE LOCK TO RIGHT FOREARM FLUSHED WELL. NO REDNESS OR SWELLING NOTED TO IV SITES. ORAL CARE DONE. RESP THERAPIST WAS IN ROOM.
--- NOTE | 2020-08-24 22:04 | NUR ---
PADS CLEAN. TURNED AND REPOSITIONED. FEET OFFLOADED FROM BED WITH PILLOWS.
--- NOTE | 2020-08-24 23:16 | NUR ---
FENTANYL DRIP AT 2 MCG/KG/HR, VERSED DRIP AT 10 MG/HR, NEOSYNEPHRINE DRIP AT 75 MCG/MIN. HOB KEPT ELEVATED 20 DEG. O2 SAT FLUCTUATES BETWEEN 88-93%. ORAL CARE DONE. BP AT THIS TIME 130/82
[2020-08-25] VITALS (15 sets, daily range): BP systolic 106–148; BP diastolic 66–88
--- NOTE | 2020-08-25 03:41 | NUR ---
BP 148/89, HR 60/MIN. O2 SAT 91%, VENT ON SAME SETTINGS. LUGO CARE DONE, ORAL CARE DONE.
--- NOTE | 2020-08-25 06:14 | NUR ---
NO BM, PADS CLEAN. O2 SAT CONTINUES TO FLUCTUATE BETWEEN 87-92%. ON VENT SAME SETTINGS. LATEST BP IS 136/84. FENTANYL DRIP AT 2 MCG/KG/HR, VERSED AT MG/HR, NEOSYNEPHRINE AT 75 MCG/MIN. NS AT 50ML/HR. PICC LINES FLUSHED WITH 5ML EACH, FLUSHED WELL. SALINE LOCK TO RIGHT FOREARM FLUSHED WELL, IV SITES FREE FROM REDNESS OR SWELLING. DRAINED TOTAL OF 900ML YELLOW URINE FROM LUGO BAG. HOB KEPT ELEVATED 20-30 DEG.
--- NOTE | 2020-08-25 07:15 | NUR ---
ENDORSED TO NURSE CHIDI
[2020-08-25 07:19] LABS: BASOPHIL % 0.7 % (0.2-1.5); PLATELET COUNT 173 x10^3mcL (152-348)
--- NOTE | 2020-08-25 07:53 | NUR ---
AT 0710 - RECEIVED PATIENT FROM NIGHT NURSE. PATIENT SEDATED ON FENTANYL AT 2 MCG/KG/HR AND [place] 10 MG/HR. INTUBATED ON VENT IN AC/PC MODE WITH FIO2 100%. RATE 20, PT RATE 35. PEEP 10. O2 SAT 90-94%. IV ALSO INFUSING NS AT 50 ML/HR. LUGO CATHETER DRAINING YELLOW URINE. NEOSYNEPHRINE INFUSION AT 75 MCG/MIN. BP 137/81. AT 0735 - JUNIOR AUTOMATION ENGINEER BUSH AT BEDSIDE. NEOSYNEPHRINE INFUSION REDUCED TO 50 MCG/MIN. AT 0800 - RT AT BEDSIDE.
[2020-08-25 08:01] LABS: CALCIUM 8.3 mg/dL (8.5-10.1); CARBON DIOXIDE 27.4 mmol/L (21-32); CHLORIDE SERUM 106 mmol/L (98-107); CREATININE SERUM 0.8 mg/dL (0.7-1.3); GFR1 > 60 mL/min; GLUCOSE SERUM 158 mg/dL (74-106); POTASSIUM SERUM 4.4 mmol/L (3.5-5.1); SODIUM SERUM 141 mmol/L (136-145)
[2020-08-25 08:09] LABS: RED CELL DISTRIBUTION WIDTH 14.7 % (12.1-16.2)
--- NOTE | 2020-08-25 08:15 | NUR ---
SEEN BY DR GUO. WBC 19.0.
--- NOTE | 2020-08-25 12:12 | NUR ---
RETURNED CALL TO PATIENT'S SISTER JASMIN P[facility]. UPDATED ON PATIENT CONDITION.
--- NOTE | 2020-08-25 13:21 | NUR ---
RECEIVED CALL FROM PATIENT'S COUSIN, DIAMANTE. UPDATED ON PATIENT CONDITION. REMAINS ON SAME INFUSION SETTINGS AND SAME VENT SETTINGS. O2 SAT 94-97% AT THIS TIME. GOOD URINE OUTPUT.
--- NOTE | 2020-08-25 14:48 | NUR ---
AT 1430 - WELLNESS PROGRAM ADMINISTRATOR BUSH PER PHONE. RECEIVED ORDERS FOR TUBE FEEDING WITH VITAL AF 1.2. COMMENCE WITH 10 ML/HR. CURRENT TARGET 40 ML. 100ML H20 FLUSH Q HR. NUTRITIONAL CONSULT. WELLNESS PROGRAM ADMINISTRATOR WILL CALL SISTER WITH UPDATE REQUESTED.
--- NOTE | 2020-08-25 14:54 | NUR ---
LUGO CATHETER CARE ATTENDED. PATIENT HAVING GOOD URINE OUTPUT.
--- NOTE | 2020-08-25 16:12 | NUR ---
WHILST TURNING PATIENT PATIENT WOKE UP AND STARTED MOVING ALL EXTREMETIES. REASSURANCE PROVIDED AND PATIENT SETTLED . REMAINS ON SAME SEDATION SETTINGS. PATIENT APPEARS TO PREFER LEFT SIDE. WAS NOT ABLE TO TOLERATE R SIDE. CONTINUING TO TITRATE NEOSYNEPHRINE. CURRENTLY AT 35 MCG/MIN FOR OPTIMAL BP.
--- NOTE | 2020-08-25 18:16 | NUR ---
AT 1745 - COMMENCED OG TUBE FEEDING WITH VITAL AF 1.2 AT INITIAL RATE OF 10 ML/HR. CONTINUING DOWNWARD TITRATION OF SHAWNA-SYNEPHRINE INFUSION. CURRENTLY AT 25 MCG/MIN. BP REMAINS STABLE. LAST READING 117/78 (89) HR 60. O2 SAT 98% REMAINS ON SAME VENT AND SEDATION SETTINGS.
--- NOTE | 2020-08-25 19:15 | NUR ---
CARE ENDORSED TO NIGHT NURSE.
--- NOTE | 2020-08-25 20:00 | NUR ---
PT RESTING WITH EYES CLOSED, SEDATED. RESPONDS TO PAIN STIMULI. JYOTI SOFT WRIST RESTRAINTS NOTED. BREATH SOUNDS DIMINISHED JYOTI LUNGS. BREATHING EVEN AND UNLABORED ON VENTILATOR ON PC MODE, PEEP 10, FIO2 100%, SPO2 99%, RR 21. ETT 8, LL 26, OGT NOTED. ON TELE # 47, SINUS JESUSITA ON THE MONITOR. BOWEL SOUNDS ACTIVE. ON TUBE FEEDING VITAL AF 1.2, RUNNING AT 10 ML/HR WITH 100 ML FREE WATER FLUSH EVERY 8 HOURS, 40 ML RESIDUAL OUTPUT NOTED, REPLACED. PICC LINE NOTED ON THE RIGHT UPPER ARM INFUSING WITH NEOSYNEPHRINE DRIP AT 25 MCG/MIN, VERSED DRIP AT 10 MG/HR, AND FENTANYL DRIP AT 25 MCG/MIN. IV INTACT ON THE RIGHT FOREARM INFUSING WITH NS AT 50 ML/HR. LUGO CATH INTACT AND EMPTY. ERYTHEMA NOTED ON JYOTI INNER THIGHS. MADE PT COMFORTABLE. PLACED CALL LILGHT WITH IN REACH. WILL CONTINUE TO MONITOR.
[2020-08-26] VITALS (12 sets, daily range): BP systolic 87–162; BP diastolic 43–81
--- NOTE | 2020-08-26 00:47 | NUR ---
PT RESTING WITH EYES CLOSED. NO DISTRESS AND DISCOMFORT NOTED. AIR MATTRESS ON. WILL CONTINUE TO MONITOR.
--- NOTE | 2020-08-26 02:34 | NUR ---
PT TUBE FEEDING INCREASED FROM 10ML/HR TO 20 ML/HR. PT TOLERATED IT WELL. 50 ML RESIDUAL OUTPUT NOTED AND REPLACED. WILL CONTINUE TO MONITOR.
--- NOTE | 2020-08-26 04:12 | NUR ---
PT WAS SUCTIONED. PT STARTED OPENING EYES, COUGHING AND STARTED TO TRY AND PULL LINES AND TUBES. HR WENT DOWN TO 33, SPO2 WENT DOWN TO 90%. RT CALLED AT BEDSIDE. WITH RT AND NURSE AT BEDSIDE. PT STARTED TO CALM DOWN AND SETTLE WITH OUT CHANGING SEDATION AND VENT SETTINGS. HR 57, SPO2 97%. WILL CONTINUE TO MONITOR.
--- NOTE | 2020-08-26 06:26 | NUR ---
PT TUBE FEEDING HELD DUE TO RESIDUAL OUTPUT 120 ML, REPLACED. DR. ZHU NOTIFIED. IV INTACT AND INFUSING ORDERED. LUGO CATH INPLACE. SPO2 94% ON VENTILATOR WITH NO CHANGES IN SETTING. MADE PT COMFORTABLE. WILL ENDORSE TO THE AM NURSE ACCORDINGLY.
[2020-08-26 08:13] LABS: PLATELET COUNT 155 x10^3mcL (152-348); RED CELL DISTRIBUTION WIDTH 14.5 % (12.1-16.2)
[2020-08-26 08:24] LABS: CALCIUM 8.6 mg/dL (8.5-10.1); CARBON DIOXIDE 29.9 mmol/L (21-32); CHLORIDE SERUM 106 mmol/L (98-107); GFR1 > 60 mL/min; GLUCOSE SERUM 162 mg/dL (74-106); POTASSIUM SERUM 4.9 mmol/L (3.5-5.1); SODIUM SERUM 144 mmol/L (136-145)
--- NOTE | 2020-08-26 08:55 | NUR ---
PT.WITH LOW DORINDA SCALE AT RISK CONTINUE TO FOLLOW PRESSURE INJURY PREVENTION INTERVENTIONS. -TURN AND REPOSITION PATIENT Q 2H -ASSESS AND MONITOR SKIN CONDITION DURING POSITION CHANGE -OFFLOAD BILATERAL HEELS BY PLACING PILLOWS UNDER CALVES AT ALL TIMES, UNLESS OTHERWISE CONTRAINDICATED -PRESSURE REDISTRIBUTION BY PLACING PILLOWS AND OFFLOADING SACRALCOCCYX -KEEP SKIN CLEAN AND DRY AT ALL TIMES.
--- NOTE | 2020-08-26 16:13 | NUR ---
PanchitoB Manfred Moy Nutrition Consult received for tube feeding recommendation. Per RN, propofol was infusing at 20mcg/kg/min (375kcal) Estimated Nutritional Needs Based on actual body weight (118kg) Minute ventilation: 14.9L, Tmax: 37.1 Energy: 4733-2720 vs. 2420 kcal/day (11-14 kcal/kg vs. [id number] for COVID and Vent dependence) Protein: 84-140 g/day (1.2-2 g/kg IBW 70kg for COVID and vent dependence) Fluid: 3156-3875 mL/day (25-30 mL/kg IBW) Recommendation(s): 1. Recommend vital AF 1.2 initiate at 20ml/hr and advance 10ml Q8H to goal rate 50ml/hr. At goal rate, it will provide a volume of 1200ml, 1440kcal, 90g protein and 973.2ml free water. With 375kcal from propofol, it will meet 100% of estimated kcal and protein needs. 2. Recommend 130ml free water flush Q4H or per MD/SNACK FOODS MIXER OPERATOR.
--- NOTE | 2020-08-26 18:52 | NUR ---
CURRENT DRIP RATES FENT @ 200 SHERICE @ 12 PROP @ 30 SHAWNA @ 50 O2 STATS 96% ON VENT. NO S/S OF DISTRESS, VS STABLE. STAFEY MEASURES IN PLACE.
--- NOTE | 2020-08-26 20:00 | NUR ---
PT RESTING WITH EYES CLOSED, SEDATED. RESPONDS TO PAIN STIMULI. JYOTI SOFT WRIST RESTRAINTS NOTED. BREATH SOUNDS DIMINISHED JYOTI LUNGS. BREATHING EVEN AND UNLABORED ON VENTILATOR ON PC MODE, PEEP 12, FIO2 100%, SPO2 98%, RR 23. ETT 8, LL 26, OGT NOTED. ON TELE # 47, SINUS JESUSITA ON THE MONITOR WITH OCCASIONAL PCVS. BOWEL SOUNDS HYPOACTIVE. ON TUBE FEEDING VITAL AF 1.2, RUNNING AT 10 ML/HR WITH 100 ML FREE WATER FLUSH EVERY 8 HOURS, 110 ML RESIDUAL OUTPUT NOTED, REPLACED. TUBE FEEDING HELD THUS FAR. PICC LINE NOTED ON THE RIGHT UPPER ARM INFUSING WITH NEOSYNEPHRINE DRIP AT 50 MCG/MIN, VERSED DRIP AT 12 MG/HR, AND FENTANYL DRIP AT 1.5 MCG/MIN, AND DIPRIVAN AT 30 MCG/KG/MIN. IV INTACT ON THE RIGHT FOREARM INFUSING WITH NS AT 50 ML/HR. LUGO CATH INTACT AND DRAINING TO BRAVITY WITH VICKY URINE WITH ORANGE SEDIMENTS. MILD ERYTHEMA NOTED ON JYOTI INNER THIGHS. MADE PT COMFORTABLE. PLACED CALL LIGHT WITH IN REACH. WILL CONTINUE TO MONITOR.
--- NOTE | 2020-08-26 21:04 | NUR ---
PT FIO2 CHANGED BY RT FROM 100% TO 90%. PT TOLERATED IT WELL. SPO2 98%. WILL CONTINUE TO MONITOR.
[2020-08-27] VITALS (10 sets, daily range): BP systolic 89–144; BP diastolic 52–82
--- NOTE | 2020-08-27 00:09 | NUR ---
RECIEVED REPORT FROM CORIN HERNANDEZ VIA TELEPHONE
--- NOTE | 2020-08-27 00:09 | NUR ---
GAVE REPORT TO CARLOS HERNANDEZ OF ICU.
--- NOTE | 2020-08-27 00:30 | NUR ---
RECIEVED PT INTUBATED AND SEDATED ON FENTANYL 1.5MCG/HR, PROPOFOL 30 MCG/KG/MIN, VERSED 12MG/HR. PUPILS ARE 2MM AND SLUGGISH BILATERALLY, RSS 6, PT UNRESPONDSIVE TO STIMULI, EETT SIZE 8.0 INTACT AND SECURED @ 26CM LL, OGT INTACT AND SECURED, EENT FREE OF DISCHARGE, ETT TO VENT FIO2 90%, RATE 22, PEEP 12, PC MODE, PRESSURE 18, PT BREATHING E/U, LUNG SOUNDS CRACKLES UPPER LOBES, DIMINISHED BASES, S1/S2 AUSCULTATED, SHAWNA INFUSING @ 50MCG/MIN, NO S/S OF CHEST PAIN, PULSES PALPABLE, CAP REFILL >3S, SKIN JOINER AND COOL TO TOUCH, NO EDEMA NOTED, NADEEN PICC AND RFA IV INTACT, SECURED DRESSING CDI, GENERALIZED WEAKNESS, BILATERAL SOFT WRIST RESTRAINTS, PASSIVE ROM, VITAL INFUSING @ 10CC/HR, TOLERATING FAIR, GRV 30CC NOTED AND REPLACED, ABD, IS SOFT AND ROUND, BOWEL SOUNDS ACTIVE, NO BM AT THIS TIME, LUGO IN PLACE AND DRAINING VIA GRAVITY, URINE VICKY WITH SEDIMENTS NOTED, SKIN INTACT, UNABLE TO ASSESS PSYCH PT IS INTUBATED AND SEDATED
--- NOTE | 2020-08-27 02:20 | NUR ---
KATERIN RT DECREASED FIO2 TO 80%, SPO2 @ 96%
--- NOTE | 2020-08-27 04:30 | NUR ---
PT CLEANED. ALL LINENS AND GOWN CHANGED. LUGO CATHETER CARE PROVIDED. 875CC OF VICKY URINE OUTPUT DURING SHIFT. NO BM. PT FLOATED ON PILLOWS. BED IN LOW POSITION.
[2020-08-27 06:25] LABS: BASOPHIL % 0.4 % (0.2-1.5); RED CELL DISTRIBUTION WIDTH 14.1 % (12.1-16.2)
[2020-08-27 06:55] LABS: CALCIUM 7.9 mg/dL (8.5-10.1); CARBON DIOXIDE 28.5 mmol/L (21-32); CHLORIDE SERUM 105 mmol/L (98-107); CREATININE SERUM 0.9 mg/dL (0.7-1.3); GFR1 > 60 mL/min; GLUCOSE SERUM 271 mg/dL (74-106); POTASSIUM SERUM 4.6 mmol/L (3.5-5.1); SODIUM SERUM 139 mmol/L (136-145)
[2020-08-27 07:44] LABS: PLATELET COUNT 127 x10^3mcL (152-348)
--- NOTE | 2020-08-27 07:55 | NUR ---
BP 137/77 (92) NEOSYNEPHRINE TITRATED TO 10 MCG/MIN, WILL MONITOR FOR PATIENT RESPONSE.
--- NOTE | 2020-08-27 16:44 | NUR ---
Follow-up Nutrition Assessment: ICU5 [facility] 59M HR Dx: COVID 19 PNA, Hypoxia PMHx: HTN, DM PSHx: none Labs: (08/27) WBC 12.2H, H/H 10.1/31L, BUN 24H, BG 271H, POC BG 274H, Ca 7.9L (08/21) WBC 18.7H, BUN 21H, BG 134H, (08/18) HDL 31L, *other lipid panel WNL (08/16) WBC 12H, BUN 27H, POCBG 251H, BILI 0.23H, AST 54H, ALT 166H, ALB 2.6L Meds: Mucinex, Fentanyl, Zinc sulfate, Colace, Vitamin D, Heparin sodium, Lipitor, Pepcid, Decadron, Versed, Zosyn, Humulin, Diprivan, sodium, Donte-synephrine, Ativan, Lopressor TF: vital AF 1.2 at 40ml/hr fwf 100ml TF infusion: (08/26) 160ml I/Os: (08/26) 2367/1750ml = 617ml, (08/25) 3270/2250ml = 1020ml, (08/24) 1490/2000ml = -510ml, (08/23) 3320/2100ml = 1220ml GRV: 60cc Wt: (08/27) 111.7kg/245.74lbs, (08/09) 118.5kg/ 260# BMI: 37.4 Edema: none noted Last BM: 08/24 Skin: Skin intact Sancho: [address] (08/23), Per progress note (08/23), pt's oxygen dropped to 88% and now on BIPAP. Pt was previously on NRB 15L. Diet order was changed to CCHO full liquid on 08/23. Spoke with pt's RN. RN reported that pt is now on BIPAP and was not able to tolerate solid food, and diet order was changed. Supplements for diet also ordered with meal to aid PO intake. Will continue to monitor pt's tolerance with CCHO full liquid diet. RD Note (08/27/2020): Per progress note (08/27), pt is COVID positive and was intubated 08/24/20. During visit, pt's propofol was seen infusing at 10 mcg/kg/min (174kcal). Per pt's RN, pt's tube feeding was infusing at 20ml/hr and [id number] within 5 hours. RN stated that pt was not tolerating tube feed well, and no BM was observed today. Estimated Nutritional Needs Based on actual body weight (118kg) Minute ventilation: 14.9L, Tmax: 37.1 Energy: 0509-5697 vs. 2420 kcal/day (11-14 kcal/kg vs. [id number] for COVID and Vent dependence) Protein: 84-140 g/day (1.2-2 g/kg IBW 70kg for COVID and vent dependence) Fluid: 5249-1267 mL/day (25-30 mL/kg IBW) Nutrition Diagnosis: 1. Increased nutrient needs related to viral infection aeb BIPAP requirement, weakness, fair appetite/ obese not meeting needs. (Modified, ongoing) 2. Anticipate inadequate energy and protein intake r/t oxygen demand associated food intolerance a/e/b pt is now on BIPAP and not being able to tolerate solid diet (new). Intervention 1. Recommend continue to advance toward current goal rate 40ml/hr as tolerate. At current goal rate, it will provide a volume of 960ml, 1152kcal, 72g protein and 778.56ml free water meeting 100% of estimated kcal needs (with 174kcal from Propofol), and 85% of estimated protein needs 2. If/when pt is not tolerating tube feeding upon follow up, recommend Reglan to aid TF tolerance 3. Consider increase tube feed rate if pt is able to tolerate TF better upon follow up. Monitor/Evaluate Goal: PO intake at least 75% of estimated needs (met, ongoing goal) Monitor: PO intake, Labs, GI function, ONS tolerance F/U in 2-3 days as high risk
--- NOTE | 2020-08-27 17:03 | NUR ---
TRIED TO WEAN OFF THE SEDATION BY REDUCING THE PROPOFOL TO 8 MCG/MIN AND VERSED TO 8MG/HR.PATIENT BECAME RESTLESS AND SPO2 DROPPED TO LO 80S.SEDATION INCREASED BACK TO PROPOFOL 10MCG/KG/HR AND VERSED @ 10MG/HR. RESPIRATORY THERAPY AT THE BEDSIDE.VENT SETTINGS CHANGED. FIO2 INCREASED TO 85% PATIENT BACK TO CALM.
--- NOTE | 2020-08-27 17:10 | NUR ---
ABSORPTON CHECKED.200MLS RESIDUAL.120 FED BACK TO THE PATIENT AND THE REST DISCARDED.TUBE FEEDS DECREASED TO 10ML/HR. TO BE MONITORED AND ADVANCED TO GOAL ACCORDINGLY.
--- NOTE | 2020-08-27 18:00 | NUR ---
NOTED PT DESATURATING AND BP LOW.SHAWNA DRIP TITRATED ACCORDINGLY.RESPIRATORY THERAPIST CALLED.VENT FIO2 INCREASED TO 100%
[2020-08-28] VITALS (8 sets, daily range): BP systolic 106–130; BP diastolic 61–77
[2020-08-28 06:18] LABS: BASOPHIL % 0.6 % (0.2-1.5); PLATELET COUNT 143 x10^3mcL (152-348); RED CELL DISTRIBUTION WIDTH 14.4 % (12.1-16.2)
[2020-08-28 06:44] LABS: CALCIUM 8.2 mg/dL (8.5-10.1); CARBON DIOXIDE 28.2 mmol/L (21-32); CHLORIDE SERUM 105 mmol/L (98-107); CREATININE SERUM 0.8 mg/dL (0.7-1.3); GFR1 > 60 mL/min; GLUCOSE SERUM 243 mg/dL (74-106); MAGNESIUM 2.3 mg/dL (1.8-2.4); POTASSIUM SERUM 4.5 mmol/L (3.5-5.1); SODIUM SERUM 140 mmol/L (136-145)
--- NOTE | 2020-08-28 07:00 | NUR ---
ASSUMED PT CARE. REPORT GIVEN BY HEMSTITCHER NURSE.PATIENT IN BED.ON VENT AND SEDATION.APPEARS CLEAN .SINUS BRADYCARDIA NOTED.OTHERWISE ALL OTHE VSS. SYSTEMS ASSESMENT DONE AND DOCUMENTED ACCORDINGLY.
--- NOTE | 2020-08-28 09:00 | NUR ---
FOLLOWED UP WITH THE HAND KNITTER ON THE TUBE FEED ORDER FOLLOWING THE DIRECTOR OF CURRICULUM AND INSTRUCTION RECOMMENDATIONS.ORDERS OBTAINED ACCORDINGLY.TUBE FEEDS WILL BE STARTED SOON OBTAINED.
--- NOTE | 2020-08-28 09:23 | NUR ---
CPR INSTRUCTOR INFORMED OF PATIENT.S PESISTENT BRADYCARDIA.ADVICED TO RESTART THE DOPAMINE.CONCERNS OF POTENTIAL INCREASE IN BP WITH THE DOPAMINE BEFORE RAISED AND DISCUSSED. CPR INSTRUCTOR ADVICED TO PROCEE WITH THE DOPAMINE INFUSIAN AND BP WILL BE MONITORED AND TREATED ACCORDINGLY.
--- NOTE | 2020-08-28 14:14 | NUR ---
WEANED PT SEDATION, TOLERATED FOR 3 HR. PT THEN BECAME AGITATED, CHOCKING ON ETT, 50BPM, DESAT TO 60S. PT SEDATION RESUMED FOR TIME BEING. PT ON NS 50CC/HR WITH MINIMAL UOP, SERUM CR 0.8, BUN 29, LUGO FLUSHED, REPOSITIONED, BLADDER SCAN SHOWED 0 RESIDUAL.
--- NOTE | 2020-08-28 16:29 | NUR ---
UOP 125CC FOR 12HR SHIFT
[2020-08-29] VITALS (7 sets, daily range): BP systolic 97–133; BP diastolic 60–78
[2020-08-29 06:56] LABS: BASOPHIL % 0.5 % (0.2-1.5); PLATELET COUNT 139 x10^3mcL (152-348); RED CELL DISTRIBUTION WIDTH 13.9 % (12.1-16.2)
[2020-08-29 07:15] LABS: CALCIUM 7.7 mg/dL (8.5-10.1); CARBON DIOXIDE 32.4 mmol/L (21-32); CHLORIDE SERUM 104 mmol/L (98-107); CREATININE SERUM 0.9 mg/dL (0.7-1.3); GFR1 > 60 mL/min; GLUCOSE SERUM 208 mg/dL (74-106); POTASSIUM SERUM 4.2 mmol/L (3.5-5.1); SODIUM SERUM 141 mmol/L (136-145)
[2020-08-30 07:09] LABS: BASOPHIL % 0.4 % (0.2-1.5); PLATELET COUNT 152 x10^3mcL (152-348); RED CELL DISTRIBUTION WIDTH 14.4 % (12.1-16.2)
[2020-08-30 07:15] LABS: CALCIUM 7.8 mg/dL (8.5-10.1); CARBON DIOXIDE 30.4 mmol/L (21-32); CHLORIDE SERUM 102 mmol/L (98-107); CREATININE SERUM 0.9 mg/dL (0.7-1.3); GFR1 > 60 mL/min; GLUCOSE SERUM 210 mg/dL (74-106); POTASSIUM SERUM 4.2 mmol/L (3.5-5.1); SODIUM SERUM 139 mmol/L (136-145)
--- NOTE | 2020-08-30 13:30 | NUR ---
THE PTS DAUGHTER CALLED (JASMIN) AND I UPDATED HER ON THE PTS CONDITION.
--- NOTE | 2020-08-30 17:30 | NUR ---
I GAVE THE PT ORAL CARE AND PULMONARY TIOLET. I ALSO TURNED HIM AGAIN. HIS SATURATIONS WENT DOWN SO WE PUT THE FIO2 UP TO 90%. THE BP HAD BEEN MARGINAL THEN WENT LOWER SO I STARTED NEOSYNEPRINE WHICH IS HOLDING HIM AT 10MCGS/MIN.
[2020-08-30 20:00] VITALS: BP 115/71
--- NOTE | 2020-08-30 20:00 | NUR ---
INITIAL ASSESSMENT COMPLETED SEE PROCESS INTERVENTIONS FOR FURTHER DETAILS. PATIENT RESTING IN BED AND TOLERATING VENT WITH NO S/S OF PAIN OR DISTRESS NOTED AT THIS TIME. ITRACE COMPLETED WITH NO S/S OF INFX OR INFILERATION. NS @ 50 CC/HR, SHAWNA OFF AT THIS TIME D/T MAP >65 WILL CONTINUE TO MONITOR BP Q15MIN VIA CONTINUOUS NETWORKS SOFTWARE CONSULTANT, FENT @ 1.5 MCG/KG/HR, VERSED @ 7 MG/HR, PROPOFOL @ 30 MCG/KG/MIN. PATIENT GAG AND COUGH FORCE STRONG. PATIENT RESPONSES TO PAIN BUT NOT ABLE TO FOLLOW COMMANDS. UNABLE TO TITRATE SEDATION DOWN D/T PATIENT COUGHING AGAINST VENT AT THIS TIME. PATIENT TOLERATING TUBE FEED. NO FURTHER NEEDS AT THIS TIME. PATIENT ATTACHED TO CONTINUOUS CARDIACM MONITOR, VSS.
[2020-08-30 22:30] VITALS: BP 109/66
[2020-08-31] VITALS (7 sets, daily range): BP systolic 100–134; BP diastolic 59–69
--- NOTE | 2020-08-31 | NUR ---
REASSESSMENT COMPLETED. PATIENT STATUS UNCHANGED. PATIENT TOLERATING VENT WITH NO S/S OF PAIN OR DISTRESS AT THIS TIME. CONTINUOUS DESIGN TECHNOLOGY TEACHER ATTACHED, VSS. Q15MIN SAFETY CHECKS FOR RESTRAINTS DONE.
--- NOTE | 2020-08-31 04:00 | NUR ---
REASSESSMENT COMPLETED, PATIENT STATUS UNCHAGNED. PATIENT RESTING IN BED AND TOLERATING VENT WITH NO S/S OF PAIN OR DISTRESS NOTED AT THIS TIME. CONTINUOUS HYDRAULIC JACK MECHANIC ATTACHED, VSS. 0430 CHG BATH COMPLETED, PATIENT TOLERATED BATH/TURNS WELL THROUGHOUT THE NIGHT. CONTINUOUS HYDRAULIC JACK MECHANIC ATTACHED, VSS.
--- NOTE | 2020-08-31 04:00 | NUR ---
REASSESSMENT COMPLETED. PATIENT RESTING IN BED AND TOLERATING VENT AT THIS TIME WITH NO S/S OF PAIN OR DISTRESS NOTED. PATIENT STATUS UNCHANGED AT THIS TIME. ORAL CARE COMPLETED. CONTINUOUS CASE MAKER ATTACHED, VSS. 0420 CHG BATH COMPLETED AT THIS TIME. PATIENT DID NOT TOLERATE TURNS/BATH WELL, TAKES PATIENT APPROX. 10-15 MINS FOR RESP STATUS AND O2 SAT TO RECOVER BACK ABOVE 88% O2. 0430 PATIENT O2 SAT >92% AT THIS TIME WITH NO S/S OF DISTRESS NOTED.
--- NOTE | 2020-08-31 05:00 | NUR ---
PATIENT COUGHING OVER THE VENT AND STACKING BREATHS AGAINST THE VENT, O2 SATS 84%; PROPFOL TITRATED UP TO 40 MCG AT THIS TIME.
--- NOTE | 2020-08-31 06:01 | NUR ---
Q15M VITAL SIGNS ATTACHED TO FLOW SHEET FROM PM SHIFT.
--- NOTE | 2020-08-31 06:19 | NUR ---
CHARTED AN ERROR ON WRONG PATIENT, PATIENTS GLUCOSE WAS 239 AND THIS PATIENT WAS COVERED VIA INSULIN PRN SCALE.
[2020-08-31 06:54] LABS: PLATELET COUNT 116 x10^3mcL (152-348); RED CELL DISTRIBUTION WIDTH 14.7 % (12.1-16.2)
[2020-08-31 07:18] LABS: CALCIUM 7.7 mg/dL (8.5-10.1); CARBON DIOXIDE 28.9 mmol/L (21-32); CHLORIDE SERUM 102 mmol/L (98-107); CREATININE SERUM 0.9 mg/dL (0.7-1.3); GFR1 > 60 mL/min; GLUCOSE SERUM 241 mg/dL (74-106); POTASSIUM SERUM 3.9 mmol/L (3.5-5.1); SODIUM SERUM 138 mmol/L (136-145)
--- NOTE | 2020-08-31 08:25 | NUR ---
DR CHANCE AT BEDSIDE TO ASSESS PATIENT. UPDATES PROVIDED BY NURSING. DR CHANCE CHANGED FIO2 ON VENT FROM 90 TO 80%. ELIDA MATSON MADE AWARE.
--- NOTE | 2020-08-31 11:13 | NUR ---
SPOKE WITH PATIENT'S SISTER JASMIN PENN AND PROVIDED PATIENT UPDATE. PER OUR CONVERSATION, HER COUSIN NIC PENN MAY RECEIVE MEDICAL INFORMATION IF SHE CALLS. MANUALLY ADDED TELEPHONE AND CONTACT INFORMATION FOR NIC ON FACE SHEET.
[2020-08-31 14:32] LABS: SEGMENTED NEUTROPHILS 81 % (37-75)
[2020-08-31 14:33] LABS: MONOCYTE 4 % (0-7); rbc morphology (normal/abnorm) NORMAL (NORMAL)
--- NOTE | 2020-08-31 15:34 | NUR ---
Follow-up Nutrition Assessment: ICU5 [facility] 59M HR Dx: COVID 19 PNA, Hypoxia PMHx: HTN, DM PSHx: none Labs: (08/31) WBC 17H, H/H 10.6/32L, BUN 23H, BG 241H, POC BG 144H, Ca 7.7L (08/27) WBC 12.2H, H/H 10.1/31L, BUN 24H, BG 271H, POC BG 274H, Ca 7.9L (08/21) WBC 18.7H, BUN 21H, BG 134H, (08/18) HDL 31L, *other lipid panel WNL (08/16) WBC 12H, BUN 27H, POCBG 251H, BILI 0.23H, AST 54H, ALT 166H, ALB 2.6L Meds: Diprivan, Versed, Pepcid, Zinc sulfate, Vitamin D, Heparin sodium, Mucinex, Colace, decadron, Lipitor, Zosyn, Humulin, Fentanyl, sodium, Tylenol, Donte-synephrine, Ativan, Lopressor TF: vital AF 1.2 at 50ml/hr fwf 130ml via OGT TF infusion: (08/30) 1050ml, (08/29) 720ml, (08/28) 260ml, (08/27) 255ml (08/26) 160ml I/Os: (08/30) 4603/1650ml = 2953ml, () 2277/625ml = 1652ml, (08/28) 1394/960ml = 434ml, (08/27) 5133/1525ml = 3608ml, (08/26) 2367/1750ml = 617ml, (08/25) 3270/2250ml = 1020ml, (08/24) 1490/2000ml = -510ml, (08/23) 3320/2100ml = 1220ml GRV: (08/31) 10cc per RN, (08/27) 110cc Wt: (08/27) 111.7kg/245.74lbs, (08/09) 118.5kg/ 260# *weight decreased Edema: generalized edema Last BM: 08/24 Skin: skin intact Sancho: 12 on 08/30 *none recorded on 08/[address] (08/27), Per progress note (08/27), pt is COVID positive and was intubated 08/24/20. During visit, pt's propofol was seen infusing at 10 mcg/kg/min (174kcal). Per pt's RN, pt's tube feeding was infusing at 20ml/hr and OMB=152md within 5 hours. RN stated that pt was not tolerating tube feed well, and no BM was observed today. RD Note (08/31/2020): No BM x 1 week. Per progress note (08/30), pt was intubated 08/24/20, remains on drips fentanyl, versed, donte-synephrine, Propofol, NS, FIO2 remains at 70%. During the time of visit, pt's Propofol was seen infusing at 40mcg/kg/min (708kcal). Per pt's RN, pt had 10cc residuals and tolerating well at goal rate 50ml/hr. Pt's fluid flush was at 130ml Q4H per RN. Estimated Nutritional Needs Based on ideal body weight (70kg) Minute ventilation: 13.8, Tmax: 37.0 Energy: 4549-6176 vs. 2293 kcal/day (22-25 kcal/kg vs. [id number] for COVID and Vent dependence) Protein: 84-140 g/day (1.2-2 g/kg IBW 70kg for COVID and vent dependence) Fluid: 4727-3673 mL/day (20-25 mL/kg IBW for presence of edema and positive fluid balance) Nutrition Diagnosis: 1. Increased nutrient needs related to viral infection aeb Pt being COVID positve. (ongoing) 2. Anticipate inadequate energy and protein intake r/t oxygen demand associated food intolerance a/e/b pt is now on BIPAP and not being able to tolerate solid diet (Resolved, pt on tube feeding now). Intervention 1. Recommend vital AF 1.2 at 40ml/hr d/t high dose of Propofol. At current goal rate, it will provide a volume of 960ml, 1152kcal, 72g protein and 778.56ml free water meeting 100% of estimated kcal needs (with 708kcal from Propofol), and 85% of estimated protein needs 2. Continue current fluid flush at 130ml Q4H to provide 780ml additional and total 1558ml free water. 3. Recommend Prosource QD for additional 60kcal and 15g protein. Recommendation provided to NP. Ybarra. Monitor/Evaluate Goal: PO intake at least 75% of estimated needs (met, ongoing goal) Monitor: PO intake, Labs, GI function, ONS tolerance F/U in 2-3 days as high risk 09/02-
[2020-09-01] VITALS (11 sets, daily range): BP systolic 98–168; BP diastolic 52–94
--- NOTE | 2020-09-01 | NUR ---
GCS 3. RASS -4. Sedation titrated Versed 6mg/hr and Propofol 30 mcg/kg/hr. Fentanyl unchanged at 1.5 mcg/kg/hr
--- NOTE | 2020-09-01 06:01 | NUR ---
Full G bath, oral care, and overton care provided. Linens changed.
[2020-09-01 07:00] LABS: CALCIUM 7.6 mg/dL (8.5-10.1); CARBON DIOXIDE 29.8 mmol/L (21-32); CHLORIDE SERUM 104 mmol/L (98-107); CREATININE SERUM 0.7 mg/dL (0.7-1.3); GFR1 > 60 mL/min; GLUCOSE SERUM 272 mg/dL (74-106); POTASSIUM SERUM 4.5 mmol/L (3.5-5.1); SODIUM SERUM 138 mmol/L (136-145)
--- NOTE | 2020-09-01 07:10 | NUR ---
REPORT RECEIVED FROM CAMERON HERNANDEZ. ALL QUESTIONS AND CONCERNS ADDRESSED.
--- NOTE | 2020-09-01 07:20 | NUR ---
PATIENT RECEIVED LAYING IN BED WITH HOB ELEVATED TO 30 DEGREES. SEDATED WITH FENTANYL, VERSED AND PROPOFOL. OGT IN PLACE IN PLACE INFUSING VITAL AT 50 ML/HR. ETT IN PLACE TO VENT SETTINGS PRESSURE SUPPORT 18, RATE 24, PEEP 8, FIO2 80%. CHEST EXPANSION EVEN AND SYMMETRICAL. RUE PICC IN PLACE INFUSING FENTANYL AT 40 MCG/MIN, VERSED AT 6 MG/HR AND FENTANYL AT 1.5 MCG/KG/HR. F/C IN PLACE DRAINING TO GRAVITY VICKY COLORED URINE. NO BM NOTED. PATIENT DOES NOT APPEAR IN ANY DISTRESS OR DISCOMFORT. WILL COMPLETE FULL ASSESSMENT.
[2020-09-01 07:35] LABS: BASOPHIL % 0.6 % (0.2-1.5); PLATELET COUNT 134 x10^3mcL (152-348); RED CELL DISTRIBUTION WIDTH 14.5 % (12.1-16.2)
--- NOTE | 2020-09-01 08:30 | NUR ---
MAHNAZ CHEMICAL PATHOLOGIST AT BEDSIDE TO ASSESS PATIENT.
--- NOTE | 2020-09-01 08:45 | NUR ---
TUBE FEEDING AND LINES CHANGED AT THIS TIME.
--- NOTE | 2020-09-01 10:20 | NUR ---
ELIDA MATSON AT BEDSIDE TO TITRATE FIO2 FROM 80% TO 70%.
--- NOTE | 2020-09-01 11:41 | NUR ---
DR CHANCE AT BEDSIDE TO ASSESS PATIENT. UPDATES PROVIDED BY NURSING. NO NEW ORDERS AT THIS TIME.
--- NOTE | 2020-09-01 13:46 | NUR ---
PATIENT'S TEMP 100.3. PATIENT ADMINISTERED 650 MG TYLENOL VIA NGT AND COOLING MEASURES INITIATED. WILL CONTINUE TO MONITOR.
--- NOTE | 2020-09-01 14:38 | NUR ---
PATIENT'S TEMP REASSESSED AT 99.1. PATIENT PROVIDED BED BATH WITH LINENS AND GOWN CHANGED.
--- NOTE | 2020-09-01 20:19 | NUR ---
RECEIVED REPORT FROM PANDA HERNANDEZ. PT IS IN STATED CONDITION. PT'S TEMP AT THIS TIME IS 98.2. HIS PUPILS ARE 2+ AND SLUGGISH. SPO2 IS 94 ON THE VENTILATOR WITH VENT SETTING OF FIO2 70% PEEP 8 AND A RATE OF 24 PT IS SEDATED WITH A RASS SCORE OF 2 AND NO PAIN PER THE CPOT SCALE. PULSES ARE PRESENT THRU OUT. NGT WITH O RESIDUAL AND LUGO CATH WITH 400CC.
[2020-09-02] VITALS (9 sets, daily range): BP systolic 104–152; BP diastolic 47–84
--- NOTE | 2020-09-02 04:05 | NUR ---
pt' temperature is trending up again, now 100.2 ax. will check again in an hour for possible tylenol needs.
--- NOTE | 2020-09-02 07:50 | NUR ---
0730- PATIENT RECEIVED LAYING IN BED WITH HOB ELEVATED TO 30 DEGREES. PATIENT WITH LABORED BREATHING, HR IN 110'S AND RESPIRATIONS IN HIGH 30'S. ASSESSED PATIENT TO FIND THERE WAS A CUFF LEAK. NEEMA RT ON UNIT AND INFLATED CUFF. SEDATION INCREASED TO PROPOFOL AT 30 MCG/KG,MIN, VERSED TO 8 MG/HR AND FENTANYL TO 1.5 MCG/KG/HR. PATIENT ALSO LAVAGED AND SUCTIONED BY NEEMA MATSON WITH MODERATE JOINER SECRETIONS NOTED IN SUCTION TUBING. PATIENT BEGAN TO VENTILATE WITH HR DECREASING TO HIGH 90'S AND RESPIRATIONS DECREASED TO MID 20'S. 0740- PATIENT IN NO APPARENT DISTRESS. VITALS STABLIZED WITH BP 121/69, HR 88, RR 24, SPO2 94% WITH PATIENT ON VENT SETTINGS PRESSURE SUPPORT 18, RATE 24, PEEP 8, FIO2 80%. WILL COMPLETE FULL ASSESSMENT.
--- NOTE | 2020-09-02 09:10 | NUR ---
MAHNAZ PRE ALGEBRA TEACHER AT BEDSIDE TO ASSESS PATIENT. UPDATES PROVIDED BY NURSING.
[2020-09-02 09:13] LABS: PLATELET COUNT 201 x10^3mcL (152-348); RED CELL DISTRIBUTION WIDTH 14.5 % (12.1-16.2)
[2020-09-02 09:32] LABS: CALCIUM 8.3 mg/dL (8.5-10.1); CHLORIDE SERUM 101 mmol/L (98-107); CREATININE SERUM 0.7 mg/dL (0.7-1.3); GFR1 > 60 mL/min; GLUCOSE SERUM 208 mg/dL (74-106); POTASSIUM SERUM 3.7 mmol/L (3.5-5.1); SODIUM SERUM 140 mmol/L (136-145)
[2020-09-02 09:35] LABS: MAGNESIUM 1.8 mg/dL (1.8-2.4)
--- NOTE | 2020-09-02 11:27 | NUR ---
DR CHANCE AT BEDSIDE TO ASSESS PATIENT. UPDATES PROVIDED BY NURSING. NEW ORDERS RECEIVED. WILL CARRY OUT ORDERS.
[2020-09-02 12:13] LABS: MONOCYTE 8 % (0-7); PLATELET MORPHOLOGY PLATELETS NORMAL; SEGMENTED NEUTROPHILS 68 % (37-75); rbc morphology (normal/abnorm) NORMAL (NORMAL)
--- NOTE | 2020-09-02 12:17 | NUR ---
PATIENT ASSESSMENT COMPLETED. PATIENT WITH TEMP OF 101.00. PATIENT ADMINISTERED 650 MG TYLENOL VIA OGT. WILL REASSESS.
--- NOTE | 2020-09-02 13:00 | NUR ---
REASSESSED PATIENT'S TEMP. NOW AT 99.5. WILL INITIATE COOLING MEASURES.
--- NOTE | 2020-09-02 17:25 | NUR ---
PATIENT'S SP02 IN LOW 80'S. NEEMA RT AT BEDSIDE AND SUCTIONED PATIENT OF MODERATE AMOUNT OF THICK JOINER SECRETIONS. FIO2 TITRATED TO 100% WITH SPO2 INCREASING TO LOW 90'S. PATIENT APPEARS TO BE BELLY BREATHING, SEDATION TITRATED UP. VERSED NOW AT 13 MG/HR, FENTANYL AT 1.5MCG/KG/HR AND PROPOFOL AT 40 MCG/KG/MIN. WILL CONTINUE TO MONITOR.
--- NOTE | 2020-09-02 19:28 | NUR ---
REPORT GIVEN TO JORGE HERNANDEZ. ALL QUESTIONS AND CONCERNS ADDRESSED.
--- NOTE | 2020-09-02 22:53 | NUR ---
1929 REPORT RECEIVED FROM PANDA. REPORT INDICATE PT HAD A TEMP OF 100.3 AND WAS ICED AND GIVEN TYLENOL. WHE PT WAS ASSESSED AT 2100 HIS TEMP WAS 100.8 HE RECEIVED TYLENOL AGAIN AND ICE PAKS. HIS HEART RATE PERRY DOWN TO THE 80'S BUT RECYCLED TO 91/55. PT IS DESATING INTO THE 70'S RT CALLED AND VECORONIUM WAS STARTED AT 0. \
--- NOTE | 2020-09-02 23:50 | NUR ---
DR. Leggett was CALLLED TO REQUEST AN ORDER TO INCREASE THE PEEP ON THE PT'S VENT BECAUSE HE DESATED TO THE 70'S AND NO OTHER AJUSTMENT ARE OPTIONAL ON THE VENTILATOR. HE CONSENTED . PT NOW ON A PEEP OF 12 AND HIS SPO2 IS UP TO 89 AND HIS RESP ARE DOWUN TO 30.
[2020-09-03] VITALS (10 sets, daily range): BP systolic 68–155; BP diastolic 31–83
--- NOTE | 2020-09-03 03:08 | NUR ---
CHECKED PT'S TEMP AND IT IS 100.[address] RIVERA TO GE AN ORDER FOR A SUPPOSITORY BECUSE THE MEDS ARE NOT BEING SABSORBED FORM THE STOMACH. HE PLACED THE ORDER.
[2020-09-03 06:25] LABS: PLATELET COUNT 190 x10^3mcL (152-348)
[2020-09-03 06:31] LABS: CALCIUM 6.9 mg/dL (8.5-10.1); CARBON DIOXIDE 27.8 mmol/L (21-32); CHLORIDE SERUM 99 mmol/L (98-107); CREATININE SERUM 1.2 mg/dL (0.7-1.3); GFR1 > 60 mL/min; GLUCOSE SERUM 172 mg/dL (74-106); POTASSIUM SERUM 4.2 mmol/L (3.5-5.1); SODIUM SERUM 136 mmol/L (136-145)
[2020-09-03 09:41] LABS: RED CELL DISTRIBUTION WIDTH 14.7 % (12.1-16.2)
--- NOTE | 2020-09-03 09:53 | NUR ---
LORENZO REICH MADE AWARE OF WBC @ 24.2
--- NOTE | 2020-09-03 13:00 | NUR ---
LEVOPHED TITRATED TO 11MCG/MIN
[2020-09-03 13:49] LABS: BAND NEUTROPHIL 3 % (0-10); MONOCYTE 4 % (0-7); SEGMENTED NEUTROPHILS 83 % (37-75); rbc morphology (normal/abnorm) ABNORMAL (NORMAL)
--- NOTE | 2020-09-03 14:16 | NUR ---
LEVO TITRATED TO 10MCG/MIN
--- NOTE | 2020-09-03 16:31 | NUR ---
AMOL PENN, PT'S BROTHER WANTED PT'S CAR KEYS IN PT'S BELONING BAG. CAR KEYS GIVEN TO PT'S BROTHER IN LOBBY, NO OTHER BELONGINGS GIVEN TO AMOL
--- NOTE | 2020-09-03 16:58 | NUR ---
PRECEDEX INCREASED TO 0.4MCG/KG/HR, PT COUGHING, WILL CONTINUE TO MONITOR
--- NOTE | 2020-09-03 19:30 | NUR ---
RECEIVED REPORT FRON DAVID AVELAR AND QUESTIONS ANSWERED AND ASSUMED CARE AND TREATMENT.
--- NOTE | 2020-09-03 20:00 | NUR ---
RECEIVED PT LYING IN BED SEDATED W/ PROP,FENT AND VERSED AND PARALIZED NOCURON.NO MOVEMENT NOTED.MUSCLE STIMULATOR 4TWITCH/3SENSIVITY.ORALLY INTUBATED W/ SAME SETTING.02SAT 94 %. BREATH SOUND DIMINISHED BILAT.RESPIRATION EASY AND NONLABORED.OGT INTACT W/ CONT FEEDING VITAL AF I.2 AT 20ML/HR. CHACKED RESIDUAL 250ML AND HOLD FEEDING.ABDOMEN SOFT W/ HYPOACTIVE BOWEL SOUND.LUGO INTACT AND PATENT.NO CUTE DISTRESS NOTED.
[2020-09-04] VITALS (13 sets, daily range): BP systolic 85–156; BP diastolic 48–82
--- NOTE | 2020-09-04 | NUR ---
COMPLETE BED BATH GIVEN.LINENS CHANGED.NO STOOL NOTED.FLOAT AND MADE COMFORTABLE.VITAL STABLE.EASILY DESAT WHEN PUTTING DOWN.HOB ELEVATED.FIO2 INCREASED TO 90%02SAT 95% AFTER
[2020-09-04 06:20] LABS: BASOPHIL % 0.4 % (0.2-1.5); PLATELET COUNT 185 x10^3mcL (152-348)
[2020-09-04 06:29] LABS: CALCIUM 7.2 mg/dL (8.5-10.1); CARBON DIOXIDE 30.9 mmol/L (21-32); CHLORIDE SERUM 105 mmol/L (98-107); CREATININE SERUM 0.8 mg/dL (0.7-1.3); GFR1 > 60 mL/min; GLUCOSE SERUM 242 mg/dL (74-106); SODIUM SERUM 140 mmol/L (136-145)
[2020-09-04 06:56] LABS: RED CELL DISTRIBUTION WIDTH 15.1 % (12.1-16.2)
--- NOTE | 2020-09-04 11:14 | NUR ---
Follow-up Nutrition Assessment Dx: COVID 19 PNA, Hypoxia PMHx: HTN, DM PSHx: none Labs: (09/04/20) Na 140, K 4.0, Glu 242 H, BUN 16.0, Cr 0.8, H/H 8.1/24; no lipid panel available Meds: Colace, Decadron, D50%, Diprivan, Humulin, Lasix, Levophed, Lipitor, Lopressor, Magnesium sulfate, MoM, Pepcid, Potassium phosphate, Sodium chloride, Sublimaze, Tylenol, Versed, Vitamin C, Vitamin D, Zinc sulfate, Zofran, Zosyn TF: vital AF 1.2 at 50ml/hr fwf 130ml via OGT TF infusion: (09/04) 200 mL, (09/03) 200 mL, (09/02) 1024 mL, (09/01) 955 mL, (08/31) 1050 mL, (08/30) 1050ml, (08/29) 720ml, (08/28) 260ml, (08/27) 255ml (08/26)160ml I/Os: (09/04) 2868/1100 = +1768 mL, (09/03) 2279/4100 = -1821 mL, (09/02) 5071/2900 = 2171 mL, (09/01) 3546/5900 = -2354 mL, (08/31) 4201/1950 = 2251 mL, (08/30) 4603/1650ml = 2953ml, () 2277/625ml = 1652ml, (08/28) 1394/960ml = 434ml, (08/27) 5133/1525ml = 3608ml, (08/26) 2367/1750ml = 617ml, (08/25) 3270/2250ml = 1020ml, (08/24) 1490/2000ml = -510ml, (08/23) 3320/2100ml = 1220ml GRV: (08/31) 10cc per RN, (08/27) 110cc Wt: (09/02) 246#/112 kg; Wt decreased possibly due to resolving edema Edema: generalized edema Last BM: 08/24; no noted since Skin: skin intact Sancho: 12 RDN Note (09/04/20): Per RN, Pt has high GRV. Pt has active order for Colace. Per RN, Pt's resumed TF, was able to titrate feeding up to 30 mL/hr this morning. Pt is on levophed and paralytic which may be contributing to high GVR. RN reports MD may be increasing bowel regimen to be help relieve GRV and BM as Pt has not yet had a BM. Estimated Nutritional Needs Based on ideal body weight (70kg) Minute ventilation: 11.2, Tmax: 98.7F / 37.0C Energy: 7300-5619 vs. 2129 kcal/day (22-25 kcal/kg vs. [id number] -updated 09/04 for COVID and Vent dependence) Protein: 84-140 g/day (1.2-2 g/kg IBW 70kg for COVID and vent dependence) Fluid: 7903-2964 mL/day (20-25 mL/kg IBW for presence of edema and positive fluid balance) Nutrition Diagnosis: 1. Increased nutrient needs related to viral infection aeb Pt being COVID positve. (ongoing) 2. Anticipate inadequate energy and protein intake r/t oxygen demand associated food intolerance a/e/b pt is now on BIPAP and not being able to tolerate solid diet (Resolved, pt on tube feeding now). 3. Altered GI function related to levophed and paralytic agent as evidenced by high GRV. (new) Intervention 1. Consider Reglan or other gut motility agent per MD discretion due to high GRV 2. Resume vital AF 1.2 at 30 ml/hr per MD discretion. At current goal rate, it will provide a volume of 720ml, 864kcal, 54g protein and 584 ml free water meeting 56% of estimated kcal needs, and 64% of estimated protein needs 3. Continue current fluid flush at 130ml Q4H to provide 780ml additional and total 1558ml free water. 4. Recommend Prosource QD for additional 60kcal and 15g protein. Monitor/Evaluate Goal: PO intake at least 75% of estimated needs (met, ongoing goal) Monitor: PO intake, Labs, GI function, TF tolerance F/U in 2-3 days as high risk 09/06-09/07
--- NOTE | 2020-09-04 12:51 | NUR ---
LORENZO YOO MADE AWARE OF PT'S PAC, PVC, AND OCCATIONAL T-WAVE INVERSTIONS, CONSULTED LOG DECK TENDER
--- NOTE | 2020-09-04 13:01 | NUR ---
FIO2 TITRATED TO 60% FIO2, TOLERATING WELL
--- NOTE | 2020-09-04 15:02 | NUR ---
VECERONIUM OFF AT THIS TIME, WILL CONTINUE TO MONITOR
--- NOTE | 2020-09-04 15:02 | NUR ---
MD KEBEDE MADE AWARE OF EKG, NO NEW ORDERS
--- NOTE | 2020-09-04 16:45 | NUR ---
PT COUGHING AND DESATURATED TO 74% VECERONIUM TURNED BACK ON @ 0.1MCG/KG/HR
[2020-09-05] VITALS (12 sets, daily range): BP systolic 107–159; BP diastolic 52–96
--- NOTE | 2020-09-05 01:30 | NUR ---
PATIENT BOWEL SOUNDS ARE VERY HYPOACTIVE. 09/04/2020 AT 2000 I HELD THE TUBE FEEDING FOR 1 HOUR AFTER NOTICING THAT HE 250cc RESDIUAL. THE FEEDING WAS ONLY RUNNING AT 20cc/HR 09/05/2020 AT 0130 I STOPPED THE FEEDING AGAIN BECAUSE HE NOW HAD 120cc RESIDUAL AFTER ONLY INFUSING AT 20cc/HR FOR 4 HOURS
[2020-09-05 06:58] LABS: BASOPHIL % 0.8 % (0.2-1.5); PLATELET COUNT 203 x10^3mcL (152-348)
[2020-09-05 07:18] LABS: CALCIUM 7.3 mg/dL (8.5-10.1); CARBON DIOXIDE 33.4 mmol/L (21-32); CHLORIDE SERUM 106 mmol/L (98-107); CREATININE SERUM 0.8 mg/dL (0.7-1.3); GFR1 > 60 mL/min; GLUCOSE SERUM 160 mg/dL (74-106); SODIUM SERUM 143 mmol/L (136-145)
[2020-09-05 07:52] LABS: RED CELL DISTRIBUTION WIDTH 15.1 % (12.1-16.2)
--- NOTE | 2020-09-05 14:00 | NUR ---
LEVOPHED TIRTATED TO 1MCG/MIN, WILL CONNTINUE TO MONITOR
--- NOTE | 2020-09-05 15:37 | NUR ---
LATE ENTRY, PER MD CHANCE, CONTINUE TUBE FEEDINGS, HOLD IF RESIDUALS >300ML. CONTINUE TO BOWEL REGIMENT UNTIL PT HAS BM
--- NOTE | 2020-09-05 15:40 | NUR ---
PEEP TITRATED TO 10, WILL CONTINUE TO MONITOR
--- NOTE | 2020-09-05 19:30 | NUR ---
RECEIVED REPOT FROM DAVID DOMINGUEZ AND ALL QUESTIONS ANSWERED AND RESUMED CARE AND REATMENT.
--- NOTE | 2020-09-05 19:53 | NUR ---
RECEIVED PT LYING IN BED SEDATED AND ORALLY INTUBATED W/ SMAE SETTING W/ [id number]%.02SAT 99% APPEARS COMFORTABLE IN BED.W/ EDEMA +1 AND PULSES PALPABLE PEDAL PULSES WEAK.OGT TO CONT FEEDING AND TOLERATED WELL.LUGO INTACT AND PATENT.NO ACUTE DISTRESS NOTD.
[2020-09-06] VITALS (9 sets, daily range): BP systolic 96–142; BP diastolic 55–86
--- NOTE | 2020-09-06 | NUR ---
NGT HECKED FOR RESIDUAL 30CC. CONTINUE FEEDING.EET AND MOUTH SUCTIONE. MAINTAINED O2SAT 95.
--- NOTE | 2020-09-06 04:00 | NUR ---
NGT INTACT AND CECKED RESIDUAL 20CC. PRESENT RATE INCREASED TO 30ML/HR. PARTIAL BATH GIVEN. MOUTH CARE AND LUGO CARE DONE.HOB ELEVATED. NO DESATS NOTED.COUGHING AND SUCTIONED.NO RESP. DISTRESS NOTED.
[2020-09-06 06:32] LABS: PLATELET COUNT 216 x10^3mcL (152-348)
[2020-09-06 06:48] LABS: RED CELL DISTRIBUTION WIDTH 14.8 % (12.1-16.2)
[2020-09-06 07:11] LABS: CALCIUM 7.4 mg/dL (8.5-10.1); CARBON DIOXIDE 31.7 mmol/L (21-32); CHLORIDE SERUM 106 mmol/L (98-107); CREATININE SERUM 0.7 mg/dL (0.7-1.3); GFR1 > 60 mL/min; GLUCOSE SERUM 86 mg/dL (74-106); POTASSIUM SERUM 3.4 mmol/L (3.5-5.1); SODIUM SERUM 141 mmol/L (136-145)
--- NOTE | 2020-09-06 08:22 | NUR ---
PT DESATTING INTO LOW 80'S. ORAL SUCTION AND DEEP SUCTION PROVIDED. PROPOFOL INCREASED TO 25MCG/KG/MIN, PER TITRATION PROTOCOL. RT NEEMA AT BEDSIDE. FiO2 INCREASED TO 70% AT THIS TIME. WILL CONTINUE TO MONITOR.
[2020-09-06 09:05] LABS: BAND NEUTROPHIL 3 % (0-10); SEGMENTED NEUTROPHILS 66 % (37-75)
[2020-09-06 09:06] LABS: MONOCYTE 7 % (0-7)
[2020-09-06 09:07] LABS: BASOPHIL 1 % (0-2); PLATELET MORPHOLOGY PLATELETS NORMAL; rbc morphology (normal/abnorm) NORMAL (NORMAL)
--- NOTE | 2020-09-06 09:29 | NUR ---
DR MORENO AT BEDSIDE. ALL UPDATES PROVIDED.
--- NOTE | 2020-09-06 12:30 | NUR ---
RT LANG AT BEDSIDE. FIO2 NOW 65%. WILL CONTINUE TO MONITOR.
--- NOTE | 2020-09-06 14:56 | NUR ---
DR MORENO AT BEDSIDE. VENT SETTINGS NOW, ACVC, TV:350, RATE:24, PEEP:10 AND 60%. WILL CONTINUE TO MONITOR.
--- NOTE | 2020-09-06 14:57 | NUR ---
VENT SETTINGS NOW CHANGED TO ACVC, RATE:24, TV:350, PEEP:12, FiO2:75%. WILL CONTINUE TO MONITOR PT
--- NOTE | 2020-09-06 19:09 | NUR ---
REPORT GIVEN TO DAVID DIAZ. ALL QUESTIONS
--- NOTE | 2020-09-06 19:30 | NUR ---
RECEIVED REPORT FROM DAVID CEJA ALL QUESTIONS ANSWERED AND RESUME CARE AND TREATMENT.
--- NOTE | 2020-09-06 19:54 | NUR ---
RECEIVED PT LUING IN BED SEDATED AROUSABLE BY PAINFUL STIMULI.OPENED BOTH EYES WHEN STIMULATED AND CLOSED HIS EYES BACK UP.ORALLY INTUBATED W/ SAME SETTING. 02SAT 95%.EET SUCTIONED W/ MINIMAL HICK JOINER SECRETION AND MOUTH W/ MADERATED THICK WHITISHED SECRETION.BREATH SOUND DIMINISHED BILAT.RESPIRATION EASY, EVEN AND NONLABORED.OGT TO FEEDING AND TOLERATED WELL W/ LESS RESIDUAL.NO EMESIS NOTED.ABDOMEN SOFT W/ HYPOACTIVE BOWEL SOUND.LUGO INTACT AND VERY SEDIMENTED AND FLUSHED FOR PATENCY.NO RESP. DISTRESS NTOED.
--- NOTE | 2020-09-06 22:30 | NUR ---
PRESENT SBP 80S.LEVOPHED RESTARED AND TITRATED TO SBP >90 TO MAINTAIN.
[2020-09-07] VITALS (9 sets, daily range): BP systolic 93–109; BP diastolic 52–69
--- NOTE | 2020-09-07 00:31 | NUR ---
LEVOPHED CONT. SPB 0N THE 90S.CONT. ON SEDATION.AFEBRILE.
--- NOTE | 2020-09-07 03:00 | NUR ---
COMMPLETE BED BATH GIVEN. ALL LINENS CHANGED. HOB ELEVATED. MOUTH CARE DONE LUGO IRRIGATED FOR PATENTCY VERY SEDIMENTD.TURNED TO BACK.CONT ON LEVAPHED.
[2020-09-07 06:02] LABS: PLATELET COUNT 252 x10^3mcL (152-348)
[2020-09-07 06:16] LABS: CALCIUM 6.7 mg/dL (8.5-10.1); CARBON DIOXIDE 30.8 mmol/L (21-32); CHLORIDE SERUM 102 mmol/L (98-107); CREATININE SERUM 0.6 mg/dL (0.7-1.3); GFR1 > 60 mL/min; GLUCOSE SERUM 178 mg/dL (74-106); POTASSIUM SERUM 4.4 mmol/L (3.5-5.1); SODIUM SERUM 136 mmol/L (136-145)
[2020-09-07 06:18] LABS: RED CELL DISTRIBUTION WIDTH 15.2 % (12.1-16.2)
--- NOTE | 2020-09-07 06:25 | NUR ---
RESTING FAIRLY IN BED. ON CONT. SEDATION FENG PARALIZER.RESTING FAIRLY WELL.
--- NOTE | 2020-09-07 07:10 | NUR ---
REPORT RECEIVED FROM NIGHT NURSE, WILL ASSUME PT. CARE
--- NOTE | 2020-09-07 09:00 | NUR ---
PT. ON A/C VC VT 350 PEEP 12 RATE 24 FIO2 75%
--- NOTE | 2020-09-07 15:00 | NUR ---
FIO2 TITRATED DOWN TO 70 % PT. TOLERATING WELL, WILL CONTINUE TO MONITOR
--- NOTE | 2020-09-07 18:40 | NUR ---
ENDORSED CARE TO NOC SHIFT
[2020-09-08] VITALS (11 sets, daily range): BP systolic 77–122; BP diastolic 44–77
--- NOTE | 2020-09-08 03:36 | NUR ---
Tubefeed changed to goal rate of 40ml/hr. Gastric residual of 100 ml. IV Drips titrated: Versed 5mg/hr Propofol 20 mcg/kg/min
--- NOTE | 2020-09-08 04:08 | NUR ---
Heart rate up to 116 from 100. increased propofol back to 30mcg/kg/min.
--- NOTE | 2020-09-08 05:50 | NUR ---
Full CHG bath, oral care, and overton care provided. PICC line dressing changed using sterline technique. Last time dressing was changed was 08/18/2020.
--- NOTE | 2020-09-08 05:52 | NUR ---
Patient turned and repostioned q2 throughout the shift.
[2020-09-08 06:10] LABS: PLATELET COUNT 213 x10^3mcL (152-348)
[2020-09-08 06:33] LABS: CALCIUM 8.9 mg/dL (8.5-10.1); CARBON DIOXIDE 34.3 mmol/L (21-32); CHLORIDE SERUM 103 mmol/L (98-107); GFR1 > 60 mL/min; SODIUM SERUM 140 mmol/L (136-145)
[2020-09-08 06:46] LABS: GLUCOSE SERUM 185 mg/dL (74-106)
[2020-09-08 07:03] LABS: RED CELL DISTRIBUTION WIDTH 15.2 % (12.1-16.2)
[2020-09-08 07:12] LABS: POTASSIUM SERUM 5.8 mmol/L (3.5-5.1)
--- NOTE | 2020-09-08 07:30 | NUR ---
LAB CALLED AT THIS TIME/ PT'S K+ LEVEL=5.8. WILL INFORM MD AND CONT. TO MONITOR PT.
--- NOTE | 2020-09-08 07:50 | NUR ---
MD WALTON AT PT BEDSIDE AT THIS TIME. UPDATED ON PT STATUS. MADE AWARE PT'S K+ LEVEL=5.8. MADE AWARE PT IS DESTAING INTO THE 80'S. MADE AWARE PT IS ON VEC, VENT, VERSED, PROP, AND LEVO. ALL OTHER QUESTIONS ANSWERED AND ANY CONCERNS ADDRESSED. PER MD ORDER LOKELMA AND CONT. CURRENT PT CARE. WILL CARRY OUT ORDERS AND CONT. TO MONITOR PT.
[2020-09-08 10:29] LABS: BAND NEUTROPHIL 2 % (0-10); MONOCYTE 10 % (0-7); PLATELET MORPHOLOGY PLATELETS NORMAL; SEGMENTED NEUTROPHILS 80 % (37-75); rbc morphology (normal/abnorm) ABNORMAL (NORMAL)
--- NOTE | 2020-09-08 10:51 | NUR ---
LATE ENTRY: PT DESTAING IN THE 80'S. RT DEANGELO INCREASED PT'S FIO2 FROM 70% TO 100%. PT SATING IN LOW 90'S. WILL CONT. TO MONITOR PT.
--- NOTE | 2020-09-08 11:06 | NUR ---
CHANGED PT'S TUBE FEED AND TUBING FOR FEED AT THIS TIME. PT TOLERATING TUBE FEEDING WELL AT THI TIME. WILL CONT. TO MONITOR PT.
--- NOTE | 2020-09-08 12:11 | NUR ---
LATE ENTRY: RT DEANGELO DECREASED FIO2 FROM 100% TO 90%. PT TOLERATING VENT CHANGE WELL. WILL CONT. TO MONITOR PT.
--- NOTE | 2020-09-08 15:10 | NUR ---
MD MEDINA NOTIFIED PT NOT ON ACCUCHECKS/SLIDING SCALE AT THIS TIME. PER ORDER/PLACE PT ON ACCUCHECKS/SLIDING SCALE. WILL CARRY OUT ORDERS AND CONT. TO MONITOR PT.
--- NOTE | 2020-09-08 15:56 | NUR ---
SPOKE TO PT'S SISTER FILI CASTELLANOS AT THIS TIME. UPDATED HER ON PT STATUS. MADE HER AWARE PT WAS DESATING INTO THE 80'S THIS MORNING (09/08/20), FIO2 WAS INCREASED FROM 70% TO 100%, AND PT IS ON FIO2 OF 90%. MADE HER AWARE PT IS ON PROP, FENT, VERSED, VEC, AND A LOW DOSE OF LEVO. ALL OTHER QUESTIONS ANSWERED AND ANY CONCERNS ADDRESSED. WILL CONT. TO MONITOR PT.
--- NOTE | 2020-09-08 16:19 | NUR ---
Follow-up Nutrition Assessment: [facility] Dx: COVID 19 PNA, Hypoxia PMHx: HTN, DM PSHx: none Labs: (09/08) WBC: 15, H/H: 10.2/32%, K: 5.8H, BUN: 28, Glu: 185, lipid panel wnl, HgbA1C: 5.2% (09/04/20) Na 140, K 4.0, Glu 242 H, BUN 16.0, Cr 0.8, H/H 8.1/24; no lipid panel available Meds: Colace, Decadron, D50%, Diprivan, Humulin, Lasix (d/c'd on 09/07), Levophed, Lipitor (d/c'd on 09/07), Lopressor, Magnesium sulfate, MoM, Pepcid, Sodium chloride, Sublimaze, Tylenol, Versed, Vitamin C, Vitamin D, Zinc sulfate, Zofran, Propofol TF: vital AF 1.2 at 40 ml/hr, fwf 130cc Q4hr, prosource 1 packet qd TF infusion: (09/07) 544, (09/06) 320 (09/05) 620 (09/04) 200 mL, (09/03) 200 mL, (09/02) 1024 mL, (09/01) 955 mL, (08/31) 1050 mL, (08/30) 1050ml, (08/29) 720ml, (08/28) 260ml, (08/27) 255ml (08/26)160ml I/Os: (09/07) 2677 (09/06) 465 (09/05) 3068 (09/04) 2868/1100 = +1768 mL, (09/03) 2279/4100 = -1821 mL, (09/02) 5071/2900 = 2171 mL, (09/01) 3546/5900 = -2354 mL, (08/31) 4201/1950 = 2251 mL, (08/30) 4603/1650ml = 2953ml, (08/29) 2277/625ml = 1652ml, (08/28) 1394/960ml = 434ml, (08/27) 5133/1525ml = 3608ml, (08/26) 2367/1750ml = 617ml, (08/25) 3270/2250ml = 1020ml, (08/24) 1490/2000ml = -510ml, (08/23) 3320/2100ml = 1220ml GRV: (08/31) 10cc per RN, (08/27) 110cc Wt: (09/08) 120.4kg (09/02) 246#/112 kg (08/09) 118.5kg, BMI: 40.4 kg/m2 Edema: 1+ pitting edema all over body Last BM: 08/24; no noted since Skin: skin intact Sancho: 12 RDN Note (09/04/20): Per RN, Pt has high GRV. Pt has active order for Colace. Per RN, Pt's resumed TF, was able to titrate feeding up to 30 mL/hr this morning. Pt is on levophed and paralytic which may be contributing to high GVR. RN reports MD may be increasing bowel regimen to be help relieve GRV and BM as Pt has not yet had a BM. RD note (09/08) Pt currently sedated and intubated on propofol 25 mcg/kg/min, per RN pt tolerating TF well with minimal residuals Estimated Nutritional Needs Based on ideal body weight (70kg) Minute ventilation: 11.2, Tmax: 98.7F / 37.0C Energy: 8185-8480 vs. 2129 kcal/day (22-25 kcal/kg vs. [id number] -updated 09/04 for COVID and Vent dependence) Protein: 84-140 g/day (1.2-2 g/kg IBW 70kg for COVID and vent dependence) Fluid: 2904-4099 mL/day (20-25 mL/kg IBW for presence of edema and positive fluid balance) Nutrition Diagnosis: 1. Increased nutrient needs related to viral infection aeb Pt being COVID positive. (ongoing) 2. Anticipate inadequate energy and protein intake r/t oxygen demand associated food intolerance a/e/b pt is now on BIPAP and not being able to tolerate solid diet (Resolved, pt on tube feeding now). 3. Altered GI function related to levophed and paralytic agent as evidenced by high GRV. (new) Intervention 1. Change to vital HP at 30 ml/hr d/t high dose of Propofol. At current goal rate, it will provide a volume of 720 ml, 720 kcal, 63 g protein and 602 ml free water meeting 100% of lower range of estimated kcal needs (with 660 kcal from Propofol, total 1524 kcal). 2. Continue current fluid flush at 130ml Q4H to provide 780ml additional and total 1382 ml free water. 3. Increase Prosource to BID for additional 120 kcal and 30 g protein. Notified HAND GRINDER Carlos Manuel. D/t concern regarding liver function and protein, labs evaluating liver function will be performed tomorrow. Monitor/Evaluate Goal: PO intake at least 75% of estimated needs (met, ongoing goal) Monitor: PO intake, Labs, GI function, TF tolerance F/U in 2-3 days as high risk 2/5-6.
--- NOTE | 2020-09-08 16:20 | NUR ---
Intervention 1. Change to vital HP at 30 ml/hr d/t high dose of Propofol. At current goal rate, it will provide a volume of 720 ml, 720 kcal, 63 g protein and 602 ml free water meeting 100% of lower range of estimated kcal needs (with 660 kcal from Propofol, total 1524 kcal). 2. Continue current fluid flush at 130ml Q4H to provide 780ml additional and total 1382 ml free water. 3. Increase Prosource to BID for additional 120 kcal and 30 g protein. Notified TEACHER'S ASSISTANT Carlos Manuel. D/t concern regarding liver function and protein, labs evaluating liver function will be performed tomorrow. RD to follow up.
--- NOTE | 2020-09-08 18:08 | NUR ---
PT TURNED AND REPOSITIONED THROUGHOUT SHIFT. CHG BATH GIVEN. BOTH PACKETS OF PROSOURCE GIVEN. WILL CONT. TO MONITOR PT.
--- NOTE | 2020-09-08 18:26 | NUR ---
INFORMED LORENZO GRANADOS HEART RATE: 140S, WILL AWAIT ANY NEW ORDERS AND CONTINUE TO MONITOR PATIENT.
--- NOTE | 2020-09-08 18:28 | NUR ---
LORENZO MEDINA CALLED AT THIS TIME ALL UPDATES PROVIDED. SHE STS TO MONITOR AT THIS TIME, AND IF NO CHANGE IN THE NEXT 30 MINUTES, SHE WILL PUT IN ORDERS. NO NEW ORDERS AT THIS TIME. PRIMARY RN MADE AWARE. WILL CONTINUE TO MONITOR PATIENT.
--- NOTE | 2020-09-08 18:50 | NUR ---
FOLLOW UP WITH CAROL VENTURA: HEART RATE REMAINS ELEVATED, WILL AWAIT ANY NEW ORDERS AT THIS ANDREA.
--- NOTE | 2020-09-08 18:52 | NUR ---
CAROL VENTURA CALLED BACK AT THIS TIME, NEW ORDER FOR METOPROLOL, 2.5 MG X1, SEE EMAR, PRIMARY DAVID MORA MADE AWARE AT THIS TIME.
--- NOTE | 2020-09-08 18:57 | NUR ---
PT TACHY, HR IN THE 160-170'S. NOTIFIED AND METOPROLOL 2.5MG IV ONCE DAILY ORDERED. DOSE ORDER FOR 185. PHARMACY NEEDS TO VERIFY ORDER. ADMINISTRATION OF MED ENDORSED TO WARD MAID RN. WILL CONT. TO MONITOR PT UNTIL CHANGE OF SHIFT REPORT.
--- NOTE | 2020-09-08 19:12 | NUR ---
GAVE CHANGE OF SHIFT REPORT TO TITLE CLERK AUTOMOBILEDAVID BARNES AT THIS TIME. UPDATED ON PT STATUS. MADE AWARE PT'S HR WENT INTO THE 160'S-170'S AROUND 1800. MADE AWARE [employer] FLOOR INSTALLATION HELPER CAROL NOTIFIED AND [employer]OR INSTALLATION HELPER ORDERED METOPROLOL 2.5 MG IV FOR 1850. MADE AWARE ADMINISTRATION OF MED ENDORSED TO HIM. ALL OTHER QUESTIONS ANSWERED AND ANY CONCERNS ADDRESSED. CARE ENDORSED AT THIS TIME.
--- NOTE | 2020-09-08 20:28 | NUR ---
Spoke with Dr Beard regarding patient condition. Heart rate 140-150 and blood pressure 80/40 on 32 mcg/min levophed. Ordered to increase levophed to 40 mcg/min. And recalled Dr Beard in 1 hour. If condition worsens, will call before one hour.
--- NOTE | 2020-09-08 21:34 | NUR ---
Spoke with Dr Beard, about patient heart rate of 150-160. Ordered Cardizem 20mg IV push. Dr. Beard stated that he will come see the patient.
--- NOTE | 2020-09-08 22:36 | NUR ---
SPOKE WITH DR TEJEDA ABOUT HEART RATE IN THE 130-140'S. ORDERED AN AMIODARONE DRIP, STANDARD PROTOCOL, WITH THE 150MG BOLUS.
[2020-09-09] VITALS (13 sets, daily range): BP systolic 90–105; BP diastolic 55–65
--- NOTE | 2020-09-09 05:18 | NUR ---
Urine output is minimal at 100 mls in 12 hours. Will endorse to day shift rn for morning rounds discussion. Urine Hannah brown color. Full chg bath, oral care, and overton care provided. Jeffries discharge from penis noted.
[2020-09-09 06:37] LABS: PLATELET COUNT 190 x10^3mcL (152-348)
--- NOTE | 2020-09-09 06:38 | NUR ---
IV Drip Update: Fentanyl 2 mcg/kg/hr Versed 10 mg/hr Propofol 30 mcg/kg/min Vecuronium 0.7 mcg/kg/min Levophed 40 mcg/min Amiodarone 1.0 mg/min
[2020-09-09 06:48] LABS: CALCIUM 7.9 mg/dL (8.5-10.1); CARBON DIOXIDE 30.3 mmol/L (21-32); CREATININE SERUM 2.4 mg/dL (0.7-1.3); POTASSIUM SERUM 5.5 mmol/L (3.5-5.1)
--- NOTE | 2020-09-09 07:27 | NUR ---
MD WALTON AT PT BEDSIDE AT THIS TIME. UPDATED ON PT STATUS. MADE AWARE OF PT'S VENT SETTINGS AND PT IS ON FENT, VERSED, PROP, VEC, LEVO, AND AMIO. MADE AWARE PT BECAME TACHY (HR IN 160'S-170'S) YESTERDAY (09/09/20) AROUND 1800. MADE AWARE PT WAS GIVEN 2.5MG METOPROLOL AND PT BECAME HYPOTENSIVE. MADE AWARE PT STARTED ON AMIO AND PT ON LEVO AT 40MCG/MIN. MADE AWARE PT'S HV=970, K+=5.5, BUN=42.0, AND CR=2.4. MADE AWARE PT RETAINED 5L OF FLUID YESTERDAY (09/09/20). ALL OTHER QUESTIONS ANSWERED AND ANY CONCERNS ADDRESSED. PER ORDER 30 OF VAUGHN, START PT ON VASSOPRESSIN, CHANGE PT'S TUBE FEEDING TO NEPRO FROM VITAL AF 1.2, AND GET NEPHRO ON BOARD FOR POSSIBLE HD. WILL CARRY OUT ORDERS AND CONT. TO MONITOR PT.
[2020-09-09 07:31] LABS: MAGNESIUM 2.2 mg/dL (1.8-2.4); PHOSPHOROUS 7.4 mg/dL (2.5-4.9)
--- NOTE | 2020-09-09 07:42 | NUR ---
SPOKE TO DIETITIJOHNATHAN EUCEDA AT THIS TIME. IMFORMED HIM MD WALTON RECOMMENDS PT BE PLACED ON NEPRO TUBE FEEDING INSTEAD OF VITAL AF 1.2. PER DIETITIAN HE WILL CALCULATE THE FEEDING RATE. WILL CONT. TO MONITOR PT.
--- NOTE | 2020-09-09 07:48 | NUR ---
SPOKE TO DIETITIJOHNATHAN LEMA AT THIS TIME. INFORMED HIM PROP IS INFUSING AT 30MCG/KG/MIN. WILL CONT. TO MONITOR PT.
--- NOTE | 2020-09-09 08:00 | NUR ---
AMIO DRIP DECREASED TO 0.5MG/MIN FROM 1MG/MIN PER ORDER/PROTOCOL AT THIS TIME. WILL CONT. TO MONITOR PT.
--- NOTE | 2020-09-09 08:06 | NUR ---
ICU 5 [facility] Received request from ICU regarding switching formula d/t declining renal function Pt's propofol is currently infusing at 30mcg/kg/min (572kcal) Estimated Nutritional Needs Based on ideal body weight (70kg) per previous follow-up assessment Minute ventilation: 11.2, Tmax: 98.7F / 37.0C Energy: 4711-0989 vs. 2129 kcal/day (22-25 kcal/kg vs. [id number] -updated 09/04 for COVID and Vent dependence) Protein: 84-140 g/day (1.2-2 g/kg IBW 70kg for vent dependence and declined renal function) Fluid: 1145-1744 mL/day (20-25 mL/kg IBW for presence of edema and positive fluid balance) Recommendation(s): 1. recommend Nepro at 35ml/hr. At goal rate, it will provide a total volume of 840ml, 1512kcal, 68g protein and 610.68ml free water. With 572kcal from Propofol. It will meet 100% of estimated kcal needs and 80.95% of estimated protein needs. 2. Recommend fluid flush 50ml Q4H to provide additional 300ml and total of 910.68ml free water d/t pt receiving large amount of IVF and edematous. Will monitor and adjust upon follow up. 3. Consider adjusting tube feeding rate if needed based on renal function and possible hemodialysis upon follow up. Follow up assessment due 09/10-
--- NOTE | 2020-09-09 09:49 | NUR ---
CAROL BOOK RETAILER AT BEDSIDE ALL UPDATES PROVIDED. SHE STS SHE WILL ORDER CONSULT FOR NEPHRO AT THIS TIME. NO OTHER NEW ORDERS. PRIMARY RN MADE AWARE. WILL CONTINUE TO MONITOR PATIENT.
[2020-09-09 09:57] LABS: BAND NEUTROPHIL 3 % (0-10); BASOPHIL 0 % (0-2); MONOCYTE 4 % (0-7); SEGMENTED NEUTROPHILS 84 % (37-75)
[2020-09-09 09:58] LABS: rbc morphology (normal/abnorm) ABNORMAL (NORMAL)
--- NOTE | 2020-09-09 10:05 | NUR ---
INCREASED RR TO 30 PER ABG RESULT. OK PER DR. WALTON
--- NOTE | 2020-09-09 10:05 | NUR ---
RT DEANGELO CHANGED VENT RATE TO 30. WILL CONT. TO MONITOR PT.
--- NOTE | 2020-09-09 12:59 | NUR ---
HUNG NEPRO TUBE FEEDING AT THIS TIME. RATE=30ML/HR W/ FWF OF 50 Q4HRS. WILL CONT. TO MONITOR PT.
--- NOTE | 2020-09-09 14:05 | NUR ---
MD CONTRERAS AT PT BEDSIDE AT THIS TIME. UPDATED ON PT STATUS. MADE AWARE PT IS ON LEVO, VASO, AND AMIO. MADE AWARE OF PT'S VENT SETTINGS AND ALL OTHER DRIPS PT IS ON. ALL OTHER QUESTIONS ANSWERED AND ANY CONCERNS ADDRESSED. PER CONT. AMIO DRIP AND HE WILL ORDER AN EVEN MED TO TRANSITION PT OFF AMIO DRIP. WILL CARRY OUT ORDERS AND CONT. TO MONITOR PT.
--- NOTE | 2020-09-09 15:15 | NUR ---
MD SORENSEN AT PT BEDSIDE AT THIS TIME. UPDATED ON PT STATUS. MADE AWARE PT IS ON FENT, VERSED, PROP, LEVO, VASO, AMIO, AND NS AT 5ML/HR. MADE AWARE OF PT'S VENT SETTINGS. MADE AWARE PT IS NOW ON NEPRO TUBE FEEDING. MADE AWARE PT WAS ON VITAL AF 1.2 AT 40ML/HR W/ FWF OF 130ML Q4HRS. MADE AWARE PT IS ON NEPRO AT 35ML/HR AND FWF OF 50ML Q4HRS. MADE AWARE PT IS MAKING ABOUT 300-400CC OF URINE PER DAY/SHIFT. MADE AWARE SI=933, K+=5.5, BUN=42.0, AND CR=2.4. ALL OTHER QUESTIONS ANSWERED AND ANY CONCERNS ADDRESSED. PER CHANGED PT'S FWF TO 50ML Q8HRS AND HE WILL ORDER A DIURETIC. WILL CARRY OUT ORDERS AND CONT. TO MONITOR PT.
--- NOTE | 2020-09-09 15:20 | NUR ---
LOWERED FWF FROM 50ML Q4HRS TO 50ML Q8HRS PER MD SORENSEN. WILL CONT. TO MONITOR PT.
--- NOTE | 2020-09-09 18:00 | NUR ---
PT ON A ZOOM MEETING VIA [employer] W/ JASMIN PENN AT THIS TIME. WILL CONT. TO MONITOR PT.
--- NOTE | 2020-09-09 19:13 | NUR ---
GAVE CHANGE OF SHIFT REPORT TO DIRECTOR PUBLIC POLICYDAVID BARNES AT THIS TIME. UPDATED HIM ON PT STATUS. MADE HIM AWARE PT WENT INTO AFIB, SPEEDOMETER INSPECTOR ACROL NOTIFIED, MEDS GIVEN, AND TO NOTIFY SPEEDOMETER INSPECTOR CAROL IF PT'S GOES INTO AFIB AGAIN. MADE AWARE GRV HIGH TODAY (IN 500s). MADE AWARE MD LITTLE SAID PT IS NOT A CANDICATED HD. MADE AWARE FAMILY NOTIFIED ABOUT PT'S CURRENT CONDITION. ALL OTHER QUESTIONS ANSWERED AND ANY CONCERNS ADDRESSED. CARE ENDORSED TO HIM AT THIS TIME.
[2020-09-10] VITALS (10 sets, daily range): BP systolic 88–127; BP diastolic 56–76
--- NOTE | 2020-09-10 02:05 | NUR ---
Patient Blood Pressure and MAP continually decreasing. Levophed turned up to 30 mcg/min and Vasopressin is still at 0.04 mcg/min. Propofol turned off and Vecuronium turned down to 0.3 mcg/kg/min. Will monitor vital signs for level of sedation and ventilator compliance for paralytic.
--- NOTE | 2020-09-10 02:54 | NUR ---
Full CHG Bath, Oral Care, and Hernandez Care Provided. Coccyx dressing changed.
--- NOTE | 2020-09-10 03:09 | NUR ---
Amiodarone 0.5mg turned off at 18 hours per protocol. Patient received PO amiodarone
--- NOTE | 2020-09-10 03:11 | NUR ---
Vecuronium turned off. Patient is still complaint with the ventilator. Will continue to monitor ventilator synchrony
--- NOTE | 2020-09-10 04:42 | NUR ---
IV Drip Update: Fentanyl 1.5 mcg/kg/hr Versed 4 mg/hr Levophed 30 mcg/min Vasopressin 0.04 mcg/min Vecuronium 0.6 mcg/min
--- NOTE | 2020-09-10 04:45 | NUR ---
Patient O2 saturations are in high 70's low 80's. RT at bedside.
--- NOTE | 2020-09-10 04:49 | NUR ---
Patient was repositioned and turned Q2 and prn throughout the shift and will continue to be repositioned and turned until the end of shift.
--- NOTE | 2020-09-10 05:00 | NUR ---
Spoke with Dr. Beard regarding patient heart rate in the 130-150's and O2 SpO2 in the 70's. Order to restart amiodarone, "titrate as needed." Will start amio at 1.0 mg/min. Ordered RT allowed to try pressure control ventilation.
--- NOTE | 2020-09-10 05:39 | NUR ---
RT spend 45 minutes in patient room working with the ventilator. Dr. Garay in unit and asked him to look at the patient while he was here. Dr Garay, did not check on the patient. Loretta spoke with Dr. Beard and let him know that patient had not been checked out yet.
--- NOTE | 2020-09-10 05:59 | NUR ---
Levophed titrated down to 25 mcg/min
[2020-09-10 06:10] LABS: CALCIUM 8.4 mg/dL (8.5-10.1); CARBON DIOXIDE 26.8 mmol/L (21-32); CREATININE SERUM 3.7 mg/dL (0.7-1.3); MAGNESIUM 2.3 mg/dL (1.8-2.4); PHOSPHOROUS 8.8 mg/dL (2.5-4.9)
[2020-09-10 06:18] LABS: POTASSIUM SERUM 6.3 mmol/L (3.5-5.1)
[2020-09-10 06:20] LABS: BASOPHIL % 0.7 % (0.2-1.5); PLATELET COUNT 172 x10^3mcL (152-348)
--- NOTE | 2020-09-10 06:49 | NUR ---
Called to informed Resident doctor of patient status and labs. I was told that they are under the PHYS THERAPIST's service and to call them in 15 minutes.
--- NOTE | 2020-09-10 06:53 | NUR ---
Carlos Manuel VENTURA made aware of [facility] condition and labs.
--- NOTE | 2020-09-10 07:24 | NUR ---
CAROL VENTURA AT BEDSIDE. MADE AWARE OF ALL ABNORMAL LAB FINDINGS THIS MORNING AND PTS UNSTABLE HEART RHYTHM/RATE DESPITE AMIO DRIP. AWAITING NEW ORDERS. WILL CARRY OUT NEW ORDERS AND CONTINUE TO MONITOR.
[2020-09-10 07:31] LABS: RED CELL DISTRIBUTION WIDTH 14.8 % (12.1-16.2)
--- NOTE | 2020-09-10 08:27 | NUR ---
DR WALTON SPOKE WITH PATIENT'S SISTER JASMIN POC AND CODE STATUS. JASMIN HAS DECIDED TO MAKE PATIENT A DNR BUT WOULD LIKE TO PROCEED WITH H.D. IF NEPHROLOGY FEELS IT IS APPROPRIATE. CAROL VENTURA MADE AWARE.
--- NOTE | 2020-09-10 08:29 | NUR ---
PER DR. MORENO, SPOKE TO PT FAMILY REGARDING PTS CURRENT CONDITION. PER FAMILY, CHANGE PT STATUS TO DNR.
--- NOTE | 2020-09-10 08:50 | NUR ---
FAMILY CALLED AT THIS TIME TO VERIFY CONSENT FOR LISA CATH PLACEMENT AND HEMODIALYSIS, VERIFIED WITH PANDA HART. WILL CONTINUE TO MONITOR.
--- NOTE | 2020-09-10 08:59 | NUR ---
SPOKE WITH CAROL VENTURA AND MADE HER AWARE THAT PATIENT HAS SCHEDULED DOSE OF AMIODORONE VIA NGT. CAROL ADVISED PATIENT STARTED BACK ON AMIODORONE DRIP AT 0300 THIS AM. OKAY TO ORAL AMIODORONE UNTIL PATIENT COMPLETES DRIP.
--- NOTE | 2020-09-10 09:20 | NUR ---
AMIO DRIP NOW TITRATED TO 0.5MG/MIN.
--- NOTE | 2020-09-10 09:35 | NUR ---
PT BP TRENDING LOW. WILL INITIATE NESYNEPHRINE AT THIS TIME. SEE EMAR.
--- NOTE | 2020-09-10 10:10 | NUR ---
DR MORENO AT BEDSIDE FOR LISA CATH PLACEMENT. WILL CONTINUE TO MONITOR.
--- NOTE | 2020-09-10 11:39 | NUR ---
LORENZO MEDINA MADE AWARE O F PT Na+:128. NO ORDERS AT THIS TIME.
--- NOTE | 2020-09-10 13:45 | NUR ---
PER , SPOKE TO FAMILY REGARDING PT BEING TOO UNSTABLE TO PREOCEED WITH HEMODIALYSIS. PT ON THREE VASOPRESSORS. WILL MONITOR TODAY AND RE-EVALUATE PT TOMORROW.
--- NOTE | 2020-09-10 13:52 | NUR ---
PER DR SORENSEN, FWF NOW CHANGED TO 50ML Q8HR. WILL CARRY OUT ORDER.
--- NOTE | 2020-09-10 14:41 | NUR ---
DR BERRY AT BEDSIDE. ALL UPDATES PROVIDED.
--- NOTE | 2020-09-10 21:48 | NUR ---
THIS RN SPOKE WITH SISTER, HARMONY, FAMILY WISHES TO REVOKE DNR AT THIS TIME. MARIA ANTONIA HERNANDEZ WITNESSED VIA PHONE AT THIS TIME. MADE AWARE. NEW ORDERS FOR FULL CODE INITITATED.
[2020-09-11] VITALS (12 sets, daily range): BP systolic 97–147; BP diastolic 55–84
--- NOTE | 2020-09-11 00:30 | NUR ---
RECIEVED REPORT FROM MARIA ANTONIA HERNANDEZ, WILL CONTINUE CARE AND MONITOR
[2020-09-11 06:15] LABS: PLATELET COUNT 212 x10^3mcL (152-348)
[2020-09-11 06:45] LABS: MAGNESIUM 2.2 mg/dL (1.8-2.4); PHOSPHOROUS 8.7 mg/dL (2.5-4.9)
--- NOTE | 2020-09-11 07:58 | NUR ---
DR MORENO AT BEDSIDE. ALL UPDATES PROVIDED. MADE AWARE OF PT + I AND O'S. NO NEW ORDERS AT THIS TIME.
--- NOTE | 2020-09-11 08:15 | NUR ---
CAROL VENTURA AT BEDSIDE. ALL UPDATES PROVIDED.
[2020-09-11 08:41] LABS: RED CELL DISTRIBUTION WIDTH 14.8 % (12.1-16.2)
--- NOTE | 2020-09-11 09:17 | NUR ---
LEVOPHED NOW INFUSING AT 20MCG/MIN, BP:127/81, MAP:90
--- NOTE | 2020-09-11 09:18 | NUR ---
TUBE FEEDING HELD AT THIS TIME. GRV:>500CC UPON ASSESSMENT. NOTED AND DISCARDED. WILL CONTINUE TO MONITOR AND RESUME WHEN APPROPRIATE.
--- NOTE | 2020-09-11 09:23 | NUR ---
DR MORENO MADE AWARE OF HIGH GRV AND TUBE FEEDINGS HELD. NO NEW ORDERS AT THIS TIME.
[2020-09-11 10:07] LABS: CALCIUM 7.9 mg/dL (8.5-10.1); POTASSIUM SERUM 5.2 mmol/L (3.5-5.1)
[2020-09-11 10:13] LABS: CREATININE SERUM 5.1 mg/dL (0.7-1.3)
--- NOTE | 2020-09-11 10:59 | NUR ---
ABG DRAWN AND CRITICAL RESULTS REPORTED TO DR WALTON. HE ORDERED TO INCREASE VT TO 400. ALSO ORDERED TO SLOWLY TITRATE DOWN PEEP TOLERATED AND TO DRAW ABG AN HOUR AFTER PEEP IS TITRATED.
--- NOTE | 2020-09-11 11:20 | NUR ---
DR BRIGHT AT BEDSIDE. MADE AWARE OF ABNORMAL LAB FINDINGS AND PTS +I AND O'S. DR SPOKE TO PT'S BROTHER, ELVER, PROVIDED ALL UPDATES. PER DR BRIGHT, UNABLE TO HEMODIALYZE PT AT THIS TIME DUE TO PT'S CONDITION. FAMILY MADE AWARE. NEW ORDERS TO CARRY OUT. WILL CONTINUE TO MONITOR.
[2020-09-11 12:16] LABS: ATYPICAL LYMPH 2 %; BAND NEUTROPHIL 9 % (0-10); MONOCYTE 7 % (0-7)
[2020-09-11 12:17] LABS: BASOPHIL 1 % (0-2); METAMYELOCTE 3 % (0-2); MYELOCYTE 4 % (0-2); rbc morphology (normal/abnorm) ABNORMAL (NORMAL)
[2020-09-11 12:18] LABS: PLATELET MORPHOLOGY PLATELETS NORMAL
[2020-09-11 12:19] LABS: SEGMENTED NEUTROPHILS 66 % (37-75)
--- NOTE | 2020-09-11 13:58 | NUR ---
DR BRIGHT CALLED FOR UPDATES AT THIS TIME. ALL UPDATES PROVIDED. PER DR, WE WILL BE MOVING FORWARD WITH HEMODIALYSIS THIS AFTERNOON.
--- NOTE | 2020-09-11 14:09 | NUR ---
LISBETH, DIALYSIS NURSE CALLED AT THIS TIME AND MADE AWARE OF NEW DIALYSIS ORDER. STS SHE WILL BE HERE SOON.
--- NOTE | 2020-09-11 16:39 | NUR ---
LISBETH, DIALYSIS NURSE, AT BEDSIDE TO INITIATE HEMODIALYSIS. PT STABLE AT THIS TIME. WILL CONTINUE TO MONITOR.
--- NOTE | 2020-09-11 18:37 | NUR ---
PT REMAINS STABLE AT THIS TIME. PT UNDERGOING HEMODIALYSIS. DIALYSIS NURSELISBETH, AT BEDSIDE. NO DISTRESS NOTED AT THIS TIME. VENT SETTINGS, RATE:26, TV:400, PEEP:16, 100%. ALL LINES AND TUBES INTACT AND PATENT. PT CLEANSED, CHG BATH AND LUGO/NELA CARE PROVIDED. PT REPOSITIONED Q2H AND OFFLOADED WITH PILLOWS. WILL CONTINUE TO MONITOR AND ENDORSE TO ONCOMING NURSE.
--- NOTE | 2020-09-11 19:01 | NUR ---
DIALYSIS COMPLETED AT THIS TIME. 1L OF FLUID OUT. WILL NOTIFY ONCOMING RN. PT REMAINS STABLE AT THIS TIME.
--- NOTE | 2020-09-11 19:02 | NUR ---
REPORT GIVEN TO DAVID STONER. ALL QUESTIONS ANSWERED.
[2020-09-12] VITALS (13 sets, daily range): BP systolic 85–112; BP diastolic 41–69
[2020-09-12 06:44] LABS: CALCIUM 7.7 mg/dL (8.5-10.1); CARBON DIOXIDE 26.5 mmol/L (21-32); MAGNESIUM 1.9 mg/dL (1.8-2.4); PHOSPHOROUS 7.2 mg/dL (2.5-4.9); POTASSIUM SERUM 4.4 mmol/L (3.5-5.1)
--- NOTE | 2020-09-12 06:50 | NUR ---
PT MAP 59. SHAWNA INITIATED @50MCG/MIN. WILL MONITOR PT RESPONSE
[2020-09-12 07:02] LABS: CREATININE SERUM 4.1 mg/dL (0.7-1.3)
[2020-09-12 07:23] LABS: PLATELET COUNT 127 x10^3mcL (152-348); RED CELL DISTRIBUTION WIDTH 14.9 % (12.1-16.2)
--- NOTE | 2020-09-12 07:30 | NUR ---
DR WALTON AT BEDSIDE TO ASSESS PATIENT. UPDATES PROVIDED BY NURSING. VENT SETTINGS CHANGED BY DR WALTON TO AC MODE RATE 26, 400, PEEP 14, FIO2 100%. ORDER RECEIVED FOR ABG AT 1000. NIGEL MATSON MADE AWARE.
--- NOTE | 2020-09-12 07:35 | NUR ---
DR MORENO AT BEDSIDE. ALL UPDATES PROVIDED. NO NEW ORDERS AT THIS TIME.
--- NOTE | 2020-09-12 07:37 | NUR ---
CAROL RESERVATIONS MANAGER, AT BEDSIDE. ALL UPDATES PROVIDED. MADE AWARE PT IS STILL ON AMIODORONE DRIP. PER RESERVATIONS MANAGER, ADMINISTER ORAL AMIODORONE AND HOLD DRIP. MADE AWARE Na:129 THIS A.M. NO NEW ORDERS AT THIS TIME.
--- NOTE | 2020-09-12 07:58 | NUR ---
VENT SETTINGS ARE NOW, ACVC, RATE:26, TV:400, PEEP:14, 100%. PT BREATHING E/U. O2 SAT > 95%. WILL CONTINUE TO MONITOR.
--- NOTE | 2020-09-12 09:17 | NUR ---
DR MORENO MADE AWARE OF PT LOW PLT COUNT:127, H/H LABS TRENDING DOWN AND WBC:17.2 THIS A.M. PER , D/C HEPARIN SQ. NO OTHER NEW ORDERS AT THIS TIME.
--- NOTE | 2020-09-12 09:26 | NUR ---
TEMP;99.1, COOLING MEASURES INITIATED AT THIS TIME. WILL CONTINUE TO MONITOR
--- NOTE | 2020-09-12 10:12 | NUR ---
AMIODORONE PO ADMINISTERED AND AMIO DRIP WAS TURNED OFF AT THIS TIME. WILL CONTINUE TO MONITOR PT
--- NOTE | 2020-09-12 10:30 | NUR ---
CHINO DRAWN AND CALLED DR WALTON FOR THE CRITICAL VALUES. NO NEW ORDERS GIVEN AT THIS TIME.
--- NOTE | 2020-09-12 11:26 | NUR ---
LYNDSYE FOR HD TODAY. LISBETH, DIALYSIS NURSE, MADE AWARE. STS SHE WILL BE HERE AT 3PM.
[2020-09-12 11:44] LABS: ATYPICAL LYMPH 2 %; BAND NEUTROPHIL 13 % (0-10); BASOPHIL 1 % (0-2); METAMYELOCTE 4 % (0-2); MONOCYTE 2 % (0-7); SEGMENTED NEUTROPHILS 66 % (37-75)
[2020-09-12 11:45] LABS: MYELOCYTE 3 % (0-2); rbc morphology (normal/abnorm) ABNORMAL (NORMAL)
[2020-09-12 11:46] LABS: PLATELET MORPHOLOGY PLATELETS NORMAL
--- NOTE | 2020-09-12 12:03 | NUR ---
VECURONIUM WAS TITRATED THROUGHOUT A.M. AND TURNED OFF AT THIS TIME. PT REMAINS STABLE, NO SIGNS OF DISTRESS NOTED. PT REMAINS ON VERSED AT 2MG/HR AND WILL CONTINUE TO MONITOR. FENTANYL INFUSING AT 1MCG/KG/HR.
--- NOTE | 2020-09-12 12:04 | NUR ---
DR BRIGHT AT BEDSIDE. ALL UPDATES PROVIDED. HD PLANNED FOR TODAY. NO NEW ORDERS.
--- NOTE | 2020-09-12 13:15 | NUR ---
PT WAS CLEANSED THOROUGHLY AT THIS TIME. CHG, ORAL CARE AND LUGO/NELA CARE PROVIDED. RFA IV AND RIJQ DRESSINGS CHANGED. SACRAL DRESSING CHANGED AT THIS TIME. NO BM NOTED. ALL LINE AND TUBES REMAIN INTACT. PT REPOSITIONED AND OFFLOADED WITH PILLOWS. PT COMFORTABLE AND IN NO DISTRESS. WILL CONTINUE TO MONITOR PT.
--- NOTE | 2020-09-12 16:42 | NUR ---
LISBETH, DIALYSIS NURSE, AT BEDSIDE. NO DISTRESS NOTED. WILL CONTINUE TO MONITOR PT.
--- NOTE | 2020-09-12 17:18 | NUR ---
APPLIED TEAR EYES, EYE DROPS TO EACH EYE ORDERED PRN. PT EYES REMAIN OPEN.
--- NOTE | 2020-09-12 17:25 | NUR ---
PT BROTHER CALLED AT THIS TIME, REQUESTING FACETIME. PT UNDERGOING HD AT THIS TIME. WILL ENDORSE TO ONCOMING SHIFT RN.
--- NOTE | 2020-09-12 18:54 | NUR ---
DIALYSIS COMPLETED AT THIS TIME. PT REMAINS STABLE, NO DISTRESS NOTED. 2L OF FLUID REMOVED.
--- NOTE | 2020-09-12 19:07 | NUR ---
REPORT GIVEN TO DAVID ZAMORANO. ALL QUESTIONS ANSWERED. MADE AWARE OF FAMILY REQUESTING FACETIME.
--- NOTE | 2020-09-12 20:15 | NUR ---
INTUBATED AND SEDATED ON FENTANYL DRIP AT 0.8 MCG/KG/HR, VERSED AT 2MG/HR. VECURONIUM IS OFF. VENT SETTINGS OF AC/VC MODE, FIO2 100%, TV 400, RATE 26, PEEP 14. RR 26, O2 SAT 98%, TV 424. ETT SIZE 8.0, 25 CM ON LIP LINE. ETT TO MID MOUTH. OG TUBE IN PLACE AND SECURED. ON NEPRO WITH CARBSTEADY AT 40ML/HR WITH H20 FLUSHES SET AT 50ML Q 8 HRS. GASTRIC RESIDUAL CHECKED 100ML, REPLACED. AFIB ON THE MONITOR, HR 123/MIN. HOB ELEVATED 30 DEG. PUPILS 3MM, FIXED. NO EYE MOVEMENT OR GAG REFLEX.
--- NOTE | 2020-09-12 21:56 | NUR ---
REMOVED DRESSING FROM BUTTOCKS. NOTED MULTIPLE AREAS OF SKIN BREAKDOWN LARGEST OF WHICH IS ALONG THE INNDER RIGHT BUTTOCK MEASURING 12 CM X 2 CM. SKIN BREAKDOWN AREAS ARE BLACK AND RED IN COLOR. SURROUNDING SKIN IS PINK TO RED IN COLOR. OPTIFOAM APPLIED TO AFFECTED AREAS. TURNED AND REPOSITIONED. CN [place] AWARE.
--- NOTE | 2020-09-12 22:07 | NUR ---
BP 64/34. INCREASED VASOPRESSION TO 0.03 UNITS/MIN, RESTARTED SHAWNA SYNEPHRINE AT 50 MCG/MIN. BP RECHECKED 71/37, CONTINUING TO MONITOR
--- NOTE | 2020-09-12 22:24 | NUR ---
BP 85/41, O2 SAT 83%. PAGED RESP THERAPIST. INCREASED LEVOPHED TO 24 MCG/MIN.
--- NOTE | 2020-09-12 22:26 | NUR ---
RESP THERAPIST HERE
--- NOTE | 2020-09-12 22:34 | NUR ---
RESP THERAPIST WAS IN ROOM. PROVIDED CARE. O2 SAT 89%. BP 98/41 (60).
--- NOTE | 2020-09-12 23:20 | NUR ---
TEMP 101.5F, INFORMED DR. WAGNER. HE ORDERED URINE CULTURE, BLOOD CULTURES, AND RESP CULTURE.
--- NOTE | 2020-09-12 23:41 | NUR ---
COOLING MEASURES IN PLACE. TYLENOL 650 MG WAS ADMINISTERED VIA OG TUBE FOR FEVER OF 101.5F. HOB KEPT ELEVATED 30DEG. GASTRIC RESIDUAL 100ML, REPLACED. ON VENT AT SAME SETTINGS, O2 SAT 90%, RR 26. ON THE FOLLOWING DRIPS. FENTANYL 0.8MCG/KG/HR, VERSED 2MG/HR, NEOSYNEPHRINE 50 MCG/MIN, LEVOPHED 24MCG/MIN, VASOPRESSIN 0.03 UNITS/HR. ORAL CARE DONE. TURNED AND REPOSITIONED.
--- NOTE | 2020-09-12 23:47 | NUR ---
INFORMED RESP THERAPIST ROX OF ORDER FOR RESP CULTURE.
[2020-09-13] VITALS (15 sets, daily range): BP systolic 10–118; BP diastolic 16–53
--- NOTE | 2020-09-13 00:16 | NUR ---
BP 87/41. VASOPRESSIN ALREADY AT 0.04 UNITS/MIN, LEVOPHED AT 24 MCG/MIN. INCREASED NEOSYNEPHRINE TO 75 MCG/MIN. CONTINUING TO MONITOR.
--- NOTE | 2020-09-13 00:30 | NUR ---
TEMP RECHECKED 101.OF. CONTINUING COOLING MEASURES. LUGO CARE DONE. NO URINE NOTED THAT CAN BE COLLECTED.
--- NOTE | 2020-09-13 01:02 | NUR ---
SPUTUM SPECIMEN SENT TO LAB.
--- NOTE | 2020-09-13 01:10 | NUR ---
BP 94/49 (MAP 64). CONTINUING DRIPS AT SAME RATE.
--- NOTE | 2020-09-13 01:21 | NUR ---
HAILEY ALEJANDRE STATED TO TURN OFF VERSED AND FENTANYL. PT HAS REMAINED UNRESPONSIVE, [facility] SCORE OF 3. BP 84/43.
--- NOTE | 2020-09-13 01:24 | NUR ---
INCREASED NEOSYNEPHRINE TO 100 MCG/MIN
--- NOTE | 2020-09-13 01:34 | NUR ---
BP 76/43, INCREASED LEVOPHED TO 26 MCG/MIN.
--- NOTE | 2020-09-13 01:37 | NUR ---
CALLED DR. SOTO, INFORMED HIM OF PT'S CONDITION, LOW BP. DR. SOTO STATED HE WILL CALL FAMILY.
--- NOTE | 2020-09-13 01:47 | NUR ---
BP 84/41, MAP 52. INCREASED NEOSYNEPHRINE TO 125 MCG/MIN.
--- NOTE | 2020-09-13 02:01 | NUR ---
BP 88/47, MAP 60. INCREASED LEVOPHED TO 28 MCG/MIN. O2 SAT 88%. ON VENT.
--- NOTE | 2020-09-13 02:23 | NUR ---
HOB LOWERED TO 10 DEG. HELD OG TUBE FEEDING FOR NOW. BP UP TO 92/51
--- NOTE | 2020-09-13 02:51 | NUR ---
BP 84/47, MAP 57, INCREASED NEOSYNEPHRINE TO 150 MCG/MIN.
--- NOTE | 2020-09-13 02:51 | NUR ---
O2 SAT 85%, INFORMED RESP THERAPIST
--- NOTE | 2020-09-13 02:57 | NUR ---
RT GRAMAJO AT BEDSIDE.
--- NOTE | 2020-09-13 03:05 | NUR ---
O2 SAT UP TO 86% AFTER RT INTERVENTIONS.
--- NOTE | 2020-09-13 03:21 | NUR ---
BP 96/47, MAP 67. ELEVATED HOB 30 DEG. RESTARTED OG TUBE FEEDING. O2 SAT 83-85%. ON VENT.
--- NOTE | 2020-09-13 04:20 | NUR ---
BP 75/40, INCREASED LEVOPHED TO 30 MCG/MIN
--- NOTE | 2020-09-13 04:21 | NUR ---
INCREASED NEOSYNEPHRINE TO 175 MCG/MIN.
--- NOTE | 2020-09-13 04:51 | NUR ---
BP 72/39, HR 105. INCREASED NEOSYNEPHRINE TO 200 MCG/MIN.
--- NOTE | 2020-09-13 05:39 | NUR ---
O2 SAT 79 TO 80%, RESP THERAPIST ROX GARCIA
--- NOTE | 2020-09-13 05:45 | NUR ---
REPLACED OPTIFOAM TO SACRUM, CDI. NO BM AT THIS TIME. PATIENT WIPED DOWN WITH REGUALR WIPES, AND CHG WIPES. ORAL CARE PROVIDED. LUGO CATH EMPTIED WITH 800 ML OF YELLOW URINE. REPLACED GOWN AND SHEETS. PATIENT WITH SUPPORT TO HEAD, AND PILLOWS UNDER BUE/BLE.
--- NOTE | 2020-09-13 06:57 | NUR ---
ON THE FF: DRIPS. NEOSYNEPHRINE AT 200 MCG/MIN, LEVOPHED AT 30MCG/MIN, VASOPRESSIN AT 0.04 UNITS/MIN. LATEST BP 101/44, MAP 63. HR 108, AFIB. O2 SAT 79%, ON VENT. RR 26. HOB KEPT ELEVATED 30 DEG. ON NEPRO OG TUBE AT 40ML/HR. FENTANYL AND VERSED OFF AT THIS TIME.
[2020-09-13 07:00] LABS: CALCIUM 7.5 mg/dL (8.5-10.1); MAGNESIUM 2.3 mg/dL (1.8-2.4); PHOSPHOROUS 6.5 mg/dL (2.5-4.9); POTASSIUM SERUM 4.7 mmol/L (3.5-5.1)
[2020-09-13 07:04] LABS: CREATININE SERUM 4.6 mg/dL (0.7-1.3)
[2020-09-13 07:44] LABS: PLATELET COUNT 118 x10^3mcL (152-348); RED CELL DISTRIBUTION WIDTH 15.2 % (12.1-16.2)
--- NOTE | 2020-09-13 08:27 | NUR ---
INFORMED CAROL VENTURA OF HGB:6.8. WILL AWAIT ANY NEW ORDERS, NO NEW ORDERS AT THIS TIME. PATIENT STABLE. WILL CONTINUE TO MONITOR.
--- NOTE | 2020-09-13 09:00 | NUR ---
0800; high fever, 103.5 F. Tylenoa 650 mg via ogt.tube and ice packs applied. High residual 920 ml with thih dark green fluid, stop tube feeding as patient is receiving 3 pressors with maximum dose of each. Absent all reflexs with low BP, hold rocuronium till further. Anasarca, no urine out put. Full code status. Afib rate~ 100-130 /min.
[2020-09-13 10:01] LABS: BAND NEUTROPHIL 3 % (0-10); METAMYELOCTE 2 % (0-2); MONOCYTE 6 % (0-7); SEGMENTED NEUTROPHILS 77 % (37-75); rbc morphology (normal/abnorm) ABNORMAL (NORMAL)
[2020-09-13 10:02] LABS: PLATELET MORPHOLOGY PLATELETS DECREASED
--- NOTE | 2020-09-13 13:49 | NUR ---
Follow-up Nutrition Assessment: ICU5 [facility] 60M HR Dx: COVID 19 PNA, Hypoxia PMHx: HTN, DM PSHx: none Labs: (09/13) H/H 6.8/21L, Na 132L, CL 96L, BUN 60H, Cr 4.6H, BG 160H, POC BG 156H, Ca 7.5L, Phos 6.5H, Bilirubin 0.23H, AST 45H, ALT 166H, albumin 2.6L, (09/12) WBC 17.2H (09/08) WBC: 15, H/H: 10.2/32%, K: 5.8H, BUN: 28, Glu: 185, lipid panel wnl, HgbA1C: 5.2% (09/04/20) Na 140, K 4.0, Glu 242 H, BUN 16.0, Cr 0.8, H/H 8.1/24; no lipid panel available Meds: Donte-synephrine, Vitamin C, Zinc sulfate, Decadron, Pepcid, Vitamin D, Cordarone, Tylenol, Levophed, Humulin, Humulin, Dulcolax, Colace, Fentanyl, vasostrict, norcuron, Versed TF: Nepro at 40ml/hr, fwf 50ml Q8H TF infusion: (09/13) 1085ml, (09/12) 235ml, (09/11) 733ml, (09/10) 566ml, (09/09) 793ml, (09/08) 1080ml I/Os: (09/13) 3387/2050ml = 1337ml, (09/12) 2454/1020ml = 1434ml, (09/11) 4681/60ml = 4621ml, (09/10) 3895/10ml = 3885ml, (09/09) 5845/400ml = 5445ml, (09/08) 3477/2000ml = 1477ml HD output: (09/13) 2000ml, (09/12) 1000ml GRV: (08/31) 10cc per RN, (08/27) 110cc Wt: (09/11) 133kg (09/08) 120.4kg (09/02) 246#/112 kg (08/09) 118.5kg, BMI: 40.4 kg/m2 Edema: +2 edema to BUE, +1 edema noted to BLE Last BM: no BM noted Skin: skin intact Sancho: [address] (09/08) Pt currently sedated and intubated on propofol 25 mcg/kg/min, per RN pt tolerating TF well with minimal residuals RD Note (09/13/2020): Per progress note (09/13) pt intubated and sedated, HD today. During visit, pt was seen lying in bed, ETT to vent and MAP was at 66. Per pt's primary RN, pt is at max with 3 pressors, and pt was not tolerating tube feeding with 920cc residuals today per RN. RN also reported seeing ABD distention today. D/t pt is at maximal dosage for 3 different pressors and MAP is barely higher than 65, tube feeding is currently not appropriate for pt. Estimated Nutritional Needs Based on ideal body weight (70kg) per previous follow-up assessment Minute ventilation: 11.2, Tmax: 98.7F / 37.0C Energy: 4202-4703 vs. 2129 kcal/day (22-25 kcal/kg vs. [id number] -updated 09/04 for COVID and Vent dependence) Protein: 105-140 g/day (1.5-2 g/kg IBW 70kg for vent dependence and declined renal function) Fluid: 0527-1400 mL/day (20-25 mL/kg IBW for presence of edema and positive fluid balance) Nutrition Diagnosis: 1. Increased nutrient needs related to viral infection aeb Pt being COVID positive. (ongoing) 2. Anticipate inadequate energy and protein intake r/t oxygen demand associated food intolerance a/e/b pt is now on BIPAP and not being able to tolerate solid diet (Resolved, pt on tube feeding now). 3. Altered GI function related to levophed and paralytic agent as evidenced by high GRV. (ongoing) Intervention 1. When pt is hemodynamically stable and appropriate to resume tube feeding, continue Nepro at 35ml/hr. At goal rate, it will provide a total volume of 840ml, 1512kcal, 68g protein and 610.68ml free water. With 572kcal from Propofol. It will meet 100% of estimated kcal needs and 80.95% of estimated protein needs. 2. When pt is hemodynamically stable and appropriate to resume tube feeding, continue fluid flush 50ml Q4H to provide additional 300ml and total of 910.68ml free water d/t pt receiving large amount of IVF and edematous. Will monitor and adjust upon follow up. 3. Consider adjusting prosource BID for additional 120kcal and 30g protein for high kcal and protein demand for ventilation and hemodialysis if/when pt is hemodynamically stable to resume tube feeding. Monitor/Evaluate Goal: Pt meeting at least 75% of estimated needs via nutrition support (not met, ongoing goal) - poor tolerance and maxed out on pressors Monitor: Nutrition support tolerance, Labs, GI function F/U in 2-3 days as high risk 09/15-.
--- NOTE | 2020-09-13 13:58 | NUR ---
1200; Fever 101.2, another dose of tylenol and ice packs given. 120 ml residual fron ogt.tube with thick dark green content. Blood [id number], hold insulin since there is no food intake. Poor condition, no urine out put. Rhytm convert to sinus rhythm 80/min.
--- NOTE | 2020-09-13 16:52 | NUR ---
UPDATE INFORMATION GIVEN TO HIS BROTHER WHO WOULD LIKE TO SEE HIM HIS CONDITION THAT MAY NOT SURVIVE. PERMISSION IS GRANTED BY ADMINISTRATION. PATIENT IS FULL CODE, RECENTLY STATUS HAS BEEN CHANGED FROM DNR TO FULL CODE.
--- NOTE | 2020-09-13 17:30 | NUR ---
BROTHER IS HERE, SPENDS TIME WITH HIM~15 MIN. HIS SISTER ON THE PHONE WITH HIM. FULL CODE STILL.
--- NOTE | 2020-09-13 19:03 | NUR ---
O2 SATURATION IS DECLINING TO 70%. SR~67-80/MIN. ALREADY ON MAXIMUM DOSE OF 3 PRESSORS.
--- NOTE | 2020-09-13 20:00 | NUR ---
INITIAL ASSESSMENT COMPLETED SEE PROCESS INTERVENTIONS FOR FURTHER DETAILS. PATIENT RESTING IN BED AND TOLERATING VENT. PATIENT DOES NOT REQUIRE ANY SEDATION. PATIENT REMAINS UNRESPONSIVE, NO REFLEXES, PUPILS ARE FIX AND NONREACTIVE, NO RESPONSE TO PAINFUL STIMULI. MD AWARE. ITRACE COMPLETED WITH NO S/S OF INFX OR INFILTERATION, SHAWNA @ 300 MCG/MIN, LEVOPHED @ 30 MCG/MIN, VASOPRESSIN @ 0.04 UNITS/MIN, NS @ 10 CC/HR. ORAL CARE COMPLETED. Q2H TURNS INITITATED TOLERATED BY PATIENT. NO FURTHER NEEDS. CONTINUOUS ROAD CLEANER ATTACHED.
--- NOTE | 2020-09-13 21:35 | NUR ---
AWARE OF MAP 25. NEW ORDERS FOR DOPAMINE GTT. 9 DOPAMINE STARTED @ 5 MCG/KG/MIN PER ORDER.
--- NOTE | 2020-09-13 22:00 | NUR ---
DOPAMINE @ 10 MCG/KG/MIN, MAP 49
--- NOTE | 2020-09-14 | NUR ---
PATIENT UNSTABLE AND CRITICAL. FAMILY NOTIFIED, FAMILY WISHES TO KEEP PATIENT A FULL CODE AT THIS TIME. 0049 CODE BLUE CALLED. PATIENT SINUS JESUSITA, PEA AND WENT AYSTOLE. COMPRESSIONS INITIATED AT THIS TIME. SEE CODE SHEET FOR FURTHER DETAILS. [address] MARTINEZ 0110 JASMIN, SISTER, NOTIFIED OF PATIENTS PASSING AT THIS TIME. FAMILY REMINDED OF STAFF SUPPORT IF NEEDED. JASMIN TO TALK IT OVER WITH FAMILY ABOUT ARRANGMENTS. WILL GIVE CALL IN AM PER JASMIN.
== END 2020-09-14 01:02 | DRG 870 ==
LOC: ED 16:56 → IC 22:10 → DU 22:10 → IC 08-27 00:30
PROVIDERS: Emergency Medicine; Family Medicine; Internal Medicine; ADMIT Internal Medicine; ATTEND Internal Medicine
PROC: 30233N1 Transfusion of Nonautologous Red Blood Cells into Peripheral Vein, Percutaneous Approach (ICD-10-PCS; principal; 2020-08-09)
PROC: XW033E5 Introduction of Remdesivir Anti-infective into Peripheral Vein, Percutaneous Approach, New Technology Group 5 (ICD-10-PCS; 2020-08-10)
PROC: 5A09357 Assistance with Respiratory Ventilation, Less than 24 Consecutive Hours, Continuous Positive Airway Pressure (ICD-10-PCS; 2020-08-23)
PROC: 0BH17EZ Insertion of Endotracheal Airway into Trachea, Via Natural or Artificial Opening (ICD-10-PCS; 2020-08-24)
PROC: 5A1955Z Respiratory Ventilation, Greater than 96 Consecutive Hours (ICD-10-PCS; 2020-08-24)
PROC: 5A09357 Assistance with Respiratory Ventilation, Less than 24 Consecutive Hours, Continuous Positive Airway Pressure (ICD-10-PCS; 2020-08-24)
PROC: 5A1D70Z Performance of Urinary Filtration, Intermittent, Less than 6 Hours Per Day (ICD-10-PCS; 2020-09-11)
PROC: 5A1D70Z Performance of Urinary Filtration, Intermittent, Less than 6 Hours Per Day (ICD-10-PCS; 2020-09-12)
DX: A41.89 Other specified sepsis (principal); U07.1 COVID-19; J96.01 Acute respiratory failure with hypoxia; N17.0 Acute kidney failure with tubular necrosis; J12.82 Pneumonia due to coronavirus disease 2019; J45.901 Unspecified asthma with (acute) exacerbation; E87.1 Hypo-osmolality and hyponatremia; I10 Essential (primary) hypertension; E11.9 Type 2 diabetes mellitus without complications; E83.42 Hypomagnesemia; E83.51 Hypocalcemia; E66.9 Obesity, unspecified; Z71.3 Dietary counseling and surveillance; Z68.30 Body mass index [BMI] 30.0-30.9, adult; I46.9 Cardiac arrest, cause unspecified; I48.0 Paroxysmal atrial fibrillation; E87.5 Hyperkalemia
CPT/HCPCS: 36556; 36600; 82962; 83880; 85378; 87804; 90732; 97110-GP; 97116-GP; 97530-GP; A4628; G0378; J0282; J0610; J0692; J0696; J1100; J1265; J1644; J1815; J1940; J1956; J2060; J2250; J2370; J2543; J2704; J2930; J3010; J3370; J3475; J3490; J3535; J7030; J7040; J7050; J7060; U0003